=== PATIENT | male | born 1950 | race Two or more races ===

== ENCOUNTER 2020-03-16 15:13 | Inpatient (IN) | payer MEDICARE, MEDICAID ==
[~2020-03-16] VITALS: Ht 170.2 cm; Wt 65.8 kg
[2020-03-16 15:20] VITALS: BP 97/42
--- NOTE | 2020-03-16 15:25 | Emergency Room Report ---
History of Present Illness General Chief Complaint: Generalized Weakness Source: Patient, EMS Present Illness HPI The patient is brought in by EMS. He is transported from a longterm facility with a complaint of weakness. This was noticed by staff. They felt that there was some facial asymmetry however paramedics did not find this. Glucose in the field was 175. The patient denies any pain at this time. He had a history of TIAs in the past. He is unable to state when the weakness began. Paramedics state that he has no fever. There is no cough. The patient was slightly hypotensive in the field with a blood pressure of 97/42 with a heart rate of 69. The patient states he was able to walk yesterday. He denies any cough but is observed coughing. No fevers, chills, sore throat, chest pain, palpitations, nausea, vomiting, diarrhea, dysuria, abdominal pain, shortness of breath, joint pain, rashes, visual changes, dizziness, headache. Note the patient has a history of dementia and history might not be accurate. G tube COPD, pneumonia (01/23/20), NIDDM, HTN Had COVID-19 test yesterday but labs not sent out from SNF until Wednesday (today is Wednesday). 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 COVID-19 Screening: PUI COVID-19 Patient History Past Medical History: see triage record, old chart reviewed Past Surgical History: other - G tube Social History: Denies: smoking Social History Narrative [facility], born [place], retired data security consultant Reviewed Nursing Documentation: PMH: Agreed; PSxH: Agreed Review of Systems All Other Systems: negative except mentioned in HPI - patient with dementia - concern over accuracy Physical Exam Vital Signs Date Time Temp Pulse Resp B/P (MAP) Pulse Ox O2 Delivery O2 Flow Rate FiO2 03/16/20 15:10 97.3 74 16 97/42 (60) 99 Room Air Sp02 EP Interpretation: reviewed, normal General Appearance: alert, Chronically Ill Head: normocephalic, atraumatic Eyes: bilateral eye PERRL, bilateral eye abnormal EOM ENT: moist mucus membranes Neck: full range of motion, supple Respiratory: no respiratory distress, rhonchi Cardiovascular #1: regular rate, rhythm, no edema Cardiovascular #2: 2+ radial (L), 2+ dorsalis pedis (R), 2+ dorsalis pedis (L) Gastrointestinal: non tender, soft, other - G tube Genitourinary: no CVA tenderness Musculoskeletal: normal range of motion - With limb ataxia Neurologic: oriented, facial droop - slight noted by RNs, nystagmus - Slow to right fast to left, no Babinski, other - intention tremor L Psychiatric: mood/affect normal Skin: no rash Procedures Critical Care Time Critical Care Time Total Critical Care Time: 30 min bedside evaluation and treatment excludes procedures (EKG). Reason for critical care: Hypoxia and hypotension and evaluation for possible stroke Possible complications: hypotension, hypertension, ND, shock, arrhythmias, metabolic acidosis, end organ damage, respiratory failure. Interventions: Antibiotics, fluid resuscitation, aspirin, repeat evaluations Course: Patient presented with left-sided weakness. Outside of window for TPA. Chest x-ray with left-sided infiltrate. Antibiotics begun. Patient blood pressure fluctuating. Repeat fluid boluses. CT with old and possible subacute posterior circulation infarct. Aspirin administered. Admitted to telemetry. Consultations: nursing staff, EMS, admitting physician Performed by: Dr. 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 He was unable to walk at 10 AM. This excludes the possibility for TPA administration. Differential includes CVA, cerebellar stroke, TIA, pneumonia, COVID-19 amongst others. Evaluation with EKG, chest x-ray and CT of the head and labs. Patient's blood pressure is minimally low and patient will be treated with IV hydration. Consideration of a possible left cerebellar lesion based on physical exam. Patient is placed on a security monitor. EKG no acute injury. CXR @ 16:00 - L infiltrate and effusion. WBC low but left shift. Elevated CRP. Elevated BUN. Lactic acid normal. Antibiotics ordered for L infiltrate. CT with L posterior circulation infarcts. Possible subacute infarct also. Aspirin ordered. Dr. Mendoza contacted for admission. BP improved. O2 slightly low. Oxygen started. Also BP dropped to 88 again. No distress. NS bolus ordered. 17:25. Improved blood pressure and not tachycardic. Admitted telemetry. Laboratory Tests Test 03/16/20 15:32 03/16/20 17:05 White Blood Count 5.5 K/UL (4.8-10.8) Red Blood Count 5.00 M/UL (4.70-6.10) Hemoglobin 15.3 G/DL (14.2-18.0) Hematocrit 47.5 % (42.0-52.0) Mean Corpuscular Volume 95 FL (80-99) Mean Corpuscular Hemoglobin 30.7 PG (27.0-31.0) Mean Corpuscular Hemoglobin Concent 32.3 G/DL (32.0-36.0) Red Cell Distribution Width 13.3 % (11.6-14.8) Platelet Count 159 K/UL (150-450) Mean Platelet Volume 10.1 FL (6.5-10.1) Neutrophils (%) (Auto) 80.7 % (45.0-75.0) H Lymphocytes (%) (Auto) 9.4 % (20.0-45.0) L Monocytes (%) (Auto) 8.3 % (1.0-10.0) Eosinophils (%) (Auto) 0.4 % (0.0-3.0) Basophils (%) (Auto) 1.3 % (0.0-2.0) Prothrombin Time 10.0 SEC (9.30-11.50) Prothrombin Time INR 0.9 (0.9-1.1) Activated Partial Thromboplast Time 32 SEC (23-33) Sodium Level 136 MMOL/L (136-145) Potassium Level 5.7 MMOL/L (3.5-5.1) H Chloride Level 98 MMOL/L (98-107) Carbon Dioxide Level 31 MMOL/L (21-32) Anion Gap 7 mmol/L (5-15) Blood Urea Nitrogen 19 mg/dL (7-18) H Creatinine 0.9 MG/DL (0.55-1.30) Estimated Glomerular Filtration Rate > 60 mL/min (>60) Glucose Level 151 MG/DL (74-106) H Lactic Acid Level 1.30 mmol/L (0.4-2.0) Calcium Level 9.0 MG/DL (8.5-10.1) Magnesium Level 2.1 MG/DL (1.8-2.4) Total Bilirubin 0.4 MG/DL (0.2-1.0) Aspartate Amino Transferase (AST) 55 U/L (15-37) H Alanine Aminotransferase (ALT) 55 U/L (12-78) Alkaline Phosphatase 66 U/L (46-116) Total Creatine Kinase 216 U/L (26-308) Troponin I 0.001 ng/mL (0.000-0.056) C-Reactive Protein, Quantitative 8.9 mg/dL (0.00-0.90) H Pro-B-Type Natriuretic Peptide 943 pg/mL (0-125) H Total Protein 7.9 G/DL (6.4-8.2) Albumin 3.3 G/DL (3.4-5.0) L Globulin 4.6 g/dL Albumin/Globulin Ratio 0.7 (1.0-2.7) L Urine Color Pale yellow Urine Appearance Clear Urine pH 7 (4.5-8.0) Urine Specific [place] 1.005 (1.005-1.035) Urine Protein 1+ (NEGATIVE) H Urine Glucose (UA) Negative (NEGATIVE) Urine Ketones Negative (NEGATIVE) Urine Blood 2+ (NEGATIVE) H Urine Nitrite Negative (NEGATIVE) Urine Bilirubin Negative (NEGATIVE) Urine Urobilinogen Normal MG/DL (0.0-1.0) Urine Leukocyte Esterase 1+ (NEGATIVE) H Urine RBC 10-15 /HPF (0 - 0) H Urine WBC 15-20 /HPF (0 - 0) H Urine Squamous Epithelial Cells None /LPF (NONE/OCC) Urine Bacteria Few /HPF (NONE) Urine Opiates Screen Negative (NEGATIVE) Urine Barbiturates Screen Negative (NEGATIVE) Phencyclidine (PCP) Screen Negative (NEGATIVE) Urine Amphetamines Screen Negative (NEGATIVE) Urine Benzodiazepines Screen Negative (NEGATIVE) Urine Cocaine Screen Negative (NEGATIVE) Urine Marijuana (THC) Screen Negative (NEGATIVE) EKG Diagnostic Results Rate: normal Rhythm: NSR ST Segments: no acute changes - LAD and old IMI Rhythm Strip Diag. Results EP Interpretation: yes Rhythm: NSR, no PVC's, no ectopy Chest X-Ray Diagnostic Results Chest X-Ray Diagnostic Results : Chest X-Ray Ordered: Yes # of Views/Limited/Complete: 1 View Indication: Other EP Interpretation: Yes Interpretation: no pneumothorax, other - L infiltrate and effusion Impression: Other Electronically Signed by: Electronically signed by Asif Mcbride MD CT/MRI/US Diagnostic Results CT/MRI/US Diagnostic Results : Imaging Test Ordered: head Impression multiple old infarcts - posterior circulation Last Vital Signs Date Time Temp Pulse Resp B/P (MAP) Pulse Ox O2 Delivery O2 Flow Rate FiO2 03/17/20 00:00 98.4 71 20 101/60 (74) 94 03/16/20 21:36 Room Air Status: improved Disposition: ADMITTED INPATIENT Condition: Serious Asif Mcbride MD March 16, 2020 15:25
--- NOTE | 2020-03-16 15:25 | NUR ---
ED Nurse Note: Patient was BIBA from [facility] home due to generalized weakness since today morning, no fever. Patient presented calm, cooperative, AAO x3, BP 96/45, other VSS at this time, skin is warm to touch. IV established on left forearm 20 ga, bloob specimen collected, sent down.
[2020-03-16 15:59] LABS: BASOPHILS % (AUTO) 1.3 % (0.0-2.0); EOSINOPHILS % (AUTO) 0.4 % (0.0-3.0); HEMATOCRIT 47.5 % (42.0-52.0); HEMOGLOBIN 15.3 G/DL (14.2-18.0); LYMPHOCYTES % (AUTO) 9.4 % (20.0-45.0); MEAN CORPUSCULAR VOLUME 95 FL (80-99); MONOCYTES % (AUTO) 8.3 % (1.0-10.0); NEUTROPHILS % (AUTO) 80.7 % (45.0-75.0); PLATELET COUNT 159 K/UL (150-450); RED CELL DISTRIBUTION WIDTH 13.3 % (11.6-14.8); WHITE BLOOD COUNT 5.5 K/UL (4.8-10.8)
[2020-03-16 16:03] LABS: INR 0.9 (0.9-1.1)
[2020-03-16 16:07] LABS: ANION GAP 7 mmol/L (5-15); BLOOD UREA NITROGEN 19 mg/dL (7-18); CARBON DIOXIDE 31 MMOL/L (21-32); CHLORIDE 98 MMOL/L (98-107); CREATININE 0.9 MG/DL (0.55-1.30); POTASSIUM 5.7 MMOL/L (3.5-5.1); SODIUM 136 MMOL/L (136-145)
[2020-03-16] MEDS ORDERED: Azithromycin 500 MG in D5W 275 ML IVPB ONE (16:15)
[2020-03-16] MEDS ORDERED: cefTRIAXone 1 GM in NS 55 ML IVPB ONE (16:15)
[2020-03-16 16:19] LABS: ALANINE AMINOTRANSFERASE 55 U/L (12-78); ALBUMIN 3.3 G/DL (3.4-5.0); ALBUMIN/GLOBULIN RATIO 0.7 (1.0-2.7); ALKALINE PHOSPHATASE 66 U/L (46-116); ASPARTATE AMINO TRANSFERASE 55 U/L (15-37); BILIRUBIN,TOTAL 0.4 MG/DL (0.2-1.0); CREATINE KINASE 216 U/L (26-308)
[2020-03-16] MEDS ORDERED: Aspirin Baby 81mg GT STA (16:20)
--- NOTE | 2020-03-16 16:30 | Diagnostic Imaging Report ---
EXAM: XR Chest, 1 View CLINICAL HISTORY: WEAK TECHNIQUE: Frontal view of the chest. COMPARISON: None FINDINGS: Hardware: None. Lungs/pleura: Elevation of the left hemidiaphragm. Left lower lung opacity may represent atelectasis versus pneumonia. Right basilar opacity likely represents atelectasis. Prominent lung markings may represent pulmonary vasculature congestion versus infectious/inflammatory process. No pleural effusion or pneumothorax. Heart/mediastinum: Normal. No cardiomegaly. Soft tissues: Unremarkable. Bones: No acute fracture. Upper abdomen: Normal. IMPRESSION: Left lower lung opacity may represent atelectasis versus pneumonia. Right basilar opacity likely represents atelectasis. Prominent lung markings may represent pulmonary vasculature congestion versus infectious/inflammatory process.
--- NOTE | 2020-03-16 16:34 | Diagnostic Imaging Report ---
EXAM: CT Head Without Intravenous Contrast CLINICAL HISTORY: WEAK TECHNIQUE: Axial computed tomography images of the head/brain without intravenous contrast. CTDI is 53.4 mGy and DLP is 1125.7 mGy-cm. One or more of the following dose reduction techniques were used: automated exposure control, adjustment of the mA and/or kV according to patient size, use of iterative reconstruction technique. COMPARISON: None FINDINGS: Brain: No acute infarct or hemorrhage identified. No extra-axial fluid collection. No mass effect or midline shift. Scattered areas of hypoattenuation in the supratentorial white matter likely represent chronic small vessel ischemic changes. Encephalomalacia in the medial left occipital lobe. Prominent encephalomalacia in the cerebellar hemispheres. Ventricles and sulci: Prominence of the ventricles and sulci is likely secondary to cerebral volume loss. Bones: Normal. No bony lesion or fracture. Subcutaneous tissues: Normal. Sinuses: Mucosal thickening in left greater than right maxillary sinuses and ethmoid air cells. Small osteoma in the posterior left ethmoid air cells. Mastoid air cells: Fluid in the mastoid air cells. Orbits: Grossly unremarkable. Other: Atherosclerotic calcifications in the intracranial vasculature. IMPRESSION: 1. No acute intracranial abnormality. 2. Chronic small vessel ischemic changes and cerebral volume loss. Encephalomalacia as described above.
--- NOTE | 2020-03-16 17:05 | NUR ---
ED Nurse Note: urine specimen collected via straight cath, sent down
[2020-03-16 17:15] VITALS: BP 87/43
[2020-03-16 17:26] LABS: APPEARANCE,URINE CLEAR; BILIRUBIN, URINE NEGATIVE (NEGATIVE); COLOR,URINE PALE YELLOW; GLUCOSE, URINE (UA) NEGATIVE (NEGATIVE); KETONES,URINE NEGATIVE (NEGATIVE); NITRITE,URINE NEGATIVE (NEGATIVE); PH,URINE 7 (4.5-8.0); PROTEIN,URINE 1+ (NEGATIVE); UROBILINOGEN,URINE NORMAL MG/DL (0.0-1.0)
[2020-03-16 17:29] LABS: LEUKOCYTE ESTERASE ,URINE 1+ (NEGATIVE)
[2020-03-16] MEDS ORDERED: FISH OIL CAP1000 MG GT (18:32)
[2020-03-16] MEDS ORDERED: LISINOPRIL5 MG GT (18:32)
[2020-03-16] MEDS ORDERED: NAMENDA5 MG GT (18:32)
[2020-03-16] MEDS ORDERED: MOM30 ML GT (18:32)
[2020-03-16] MEDS ORDERED: FLEET ENEMA133 M1 RC (18:32)
[2020-03-16] MEDS ORDERED: BENAZEPRIL HCL5 MG GT (18:32)
[2020-03-16] MEDS ORDERED: ACETAMINOPHEN325 M1 GT (18:32)
[2020-03-16] MEDS ORDERED: COLACE100 MG GT (18:32)
[2020-03-16] MEDS ORDERED: METFORMIN500 MG/5 M PO (18:32)
[2020-03-16] MEDS ORDERED: ACETAMINOPHEN500 M3 GT (18:32)
[2020-03-16] MEDS ORDERED: MULTIVITAMINS1 EAC8 GT (18:32)
[2020-03-16] MEDS ORDERED: DULCOLAX10 MG RC (18:32)
[2020-03-16] MEDS ORDERED: METOPROLOL TART25 MG GT (18:32)
[2020-03-16] MEDS ORDERED: PRAVASTATIN SOD40 M1 GT (18:32)
--- NOTE | 2020-03-16 18:35 | NUR ---
ED Nurse Note: called to give report, ONEYDA Moise stated there is no nurse for this patient, will call me back later
--- NOTE | 2020-03-16 19:05 | NUR ---
ED Nurse Note: called second time, devulcanizer charger stated there is change of shift, call please after 19:30
[2020-03-16 20:00] VITALS: BP 95/64
--- NOTE | 2020-03-16 20:00 | NUR ---
ED Nurse Note: Patient was admited to Tele due to generalized weakness. Patient was transfered to the unit via gurney by ACLS protocol, with all belongings. Patient AAO x3, VSS at this time, pt's BP 88/56 which is baseline for hin when he is sleeping.
--- NOTE | 2020-03-16 20:10 | NUR ---
NURSE NOTES: RECEIVED REPORT FROM ONEYDA MORELAND. PATIENT TRANSFERRED TO BED WITHOUT INCIDENT. AAOX3, VERBALLY RESPONSIVE, ABLE TO MAKE NEEDS KNOWN AND FOLLOW COMMANDS APPROPRIATELY. PATIENT HAS NO COMPLAINTS OF PAIN OR DISCOMFORT AT THIS TIME. BREATHING IS EVEN AND UNLABORED ON ROOM AIR, NO S/SX OF DISTRESS NOTED. NOTED TO HAVE LUQ G-TUBE, PATENT WITH NO S/SX OF INFECTION. IV SITE ON RFA ASYMPTOMATIC, PATENT AND INTACT, SALINE-LOCKED. PATIENT CHANGED INTO YELLOW GOWN, AND FIRST AID TEACHER PLACED. NO DENTURES/HEARING AIDS/ASSISTIVE DEVICES/GLASSES/CELL PHONE IN POSSESSION. CONTACT AND DROPLET PRECAUTIONS IMPLEMENTED. BED LOCKED AND IN LOWEST POSITION WITH SIDERAILS UP X 2. CALL LIGHT WITHIN REACH. WILL CONTINUE TO MONITOR.
--- NOTE | 2020-03-16 21:15 | NUR ---
NURSE NOTES: CONTACTED DR. VENTURA FOR ADMISSION ORDERS. AWAITING CALL BACK.
--- NOTE | 2020-03-16 21:20 | NUR ---
NURSE NOTES: PER DR. VENTURA, CALL DR. CHUNG FOR ADMISSION ORDERS. LEFT DR. CHUNG VOICEMAIL AT [phone]. AWAITING CALL BACK.
[2020-03-17] VITALS (7 sets, daily range): BP systolic 101–114; BP diastolic 53–62
[2020-03-17] MEDS: NovoLOG Insulin Flexpen SUBQ SCH ×4 (06:30→21:00)
--- NOTE | 2020-03-17 07:23 | NUR ---
HAND-OFF: Report given to ONEYDA BRICE. PATIENT IN STABLE CONDITION. PLAN OF CARE ENDORSED.
--- NOTE | 2020-03-17 08:00 | NUR ---
NURSE NOTES: Report received from Rossy CALL. Patient is observed in bed, awake, alert, oriented, and able to make needs known. Respiratory even and unlabored. GTF is running at a prescribed rate. Bed is in lowest position with side rails up x2 and brakes are engaged. Bed alarm is on. Encouraged pt to use call light when in need of assistance, pt verbalized understanding.
[2020-03-17] MEDS ORDERED: Memantine 10mg tab GT SCH (09:00)
[2020-03-17] MEDS ORDERED: Memantine 10mg tab ORAL SCH (09:00)
[2020-03-17 09:02] LABS: ANION GAP 5 mmol/L (5-15); BASOPHILS % (AUTO) 0.9 % (0.0-2.0); BLOOD UREA NITROGEN 13 mg/dL (7-18); CARBON DIOXIDE 30 MMOL/L (21-32); CHLORIDE 104 MMOL/L (98-107); CREATININE 0.6 MG/DL (0.55-1.30); EOSINOPHILS % (AUTO) 0.9 % (0.0-3.0); HEMATOCRIT 40.5 % (42.0-52.0); HEMOGLOBIN 13.6 G/DL (14.2-18.0); LYMPHOCYTES % (AUTO) 8.4 % (20.0-45.0); MEAN CORPUSCULAR VOLUME 90 FL (80-99); MONOCYTES % (AUTO) 8.9 % (1.0-10.0); NEUTROPHILS % (AUTO) 80.9 % (45.0-75.0); PLATELET COUNT 133 K/UL (150-450); POTASSIUM 4.8 MMOL/L (3.5-5.1); RED BLOOD COUNT 4.49 M/UL (4.70-6.10); RED CELL DISTRIBUTION WIDTH 12.1 % (11.6-14.8); SODIUM 139 MMOL/L (136-145); WHITE BLOOD COUNT 5.9 K/UL (4.8-10.8)
[2020-03-17] MEDS: Milk of Magnesia 30ml Ud GT SCH (09:56)
[2020-03-17] MEDS: Docusate 100mg/10ml Liq GT SCH (09:56)
[2020-03-17] MEDS: metFORMIN 500mg tab ORAL SCH ×2 (09:57→17:25)
[2020-03-17] MEDS: Memantine 5 MG TAB GT SCH ×2 (09:57→17:25)
[2020-03-17] MEDS: cefTRIAXone 1 GM in D5W 55 ML IVPB SCH (09:57)
--- NOTE | 2020-03-17 11:44 | Consultation ---
DATE OF CONSULTATION: 03/17/2020 PULMONARY CONSULTATION CONSULTING PHYSICIAN: German Islas MD HISTORY OF PRESENT ILLNESS: This is a 69-year-old male brought in from a nursing facility. He reports generalized weakness. There was also some facial asymmetry. He was not hypoglycemic. The patient has had TIA in the past. The patient was mildly hypotensive, but was normotensive on arrival to the emergency room. The patient has a mild cough. There is no fever, chills, sore throat. No diarrhea. He has a G-tube in place. He has a history of dementia. PAST MEDICAL HISTORY: G-tube, COPD, previous pneumonia, diabetes mellitus, hypertension. ALLERGIES: None reported. SOCIAL HISTORY: He is a intermediate resident. MEDICATIONS: Reviewed and reconciled in chart. PHYSICAL EXAMINATION: VITAL SIGNS: Blood pressure is 140/50, heart rate 74, respiratory rate , afebrile, T-max 99.1. GENERAL: Reveals a 69-year-old male. HEENT: Unremarkable. CHEST: Clear breath sounds bilaterally with normal heart sounds. ABDOMEN: Soft. EXTREMITIES: There is no edema. G-tube is in place. LABORATORY DATA: Lab testing shows normal CBC and BMP with the exception of potassium 5.7. DIAGNOSTIC STUDIES: X-ray chest was obtained, which shows atelectasis versus pneumonia, left lung field. Head CT was also obtained, which was negative for any acute pathology. IMPRESSION: 1. Probable pneumonia. 2. custodial resident. 3. Rule out COVID-19. 4. Hypertension. 5. Previous TIA. 6. Diabetes mellitus. 7. Chronic G-tube. 8. Dementia. DISCUSSION: Admit to the hospital. Continue medications. We will follow as foot setter. Currently, the patient has received antibiotics. He is on insulin sliding scale, medication. We will follow carefully. German Islas M.D. DR: NATALIA JOB#: [id number] CC:
--- NOTE | 2020-03-17 12:00 | NUR ---
NURSE NOTES: Patient is observed in bed, awake, alert, oriented, and able to make needs known. HOB elevated. GTF running at a prescribed rate. Denies pain at this time. Will continue to monitor.
--- NOTE | 2020-03-17 13:04 | Infectious Diseases Prog Note ---
Assessment/Plan Assessment/Plan ID consult was Dictated Subjective Allergies: Coded Allergies: No Known Allergies (Unverified , 03/16/20) Objective Vital Signs Last 24 Hour Vital Signs Date Time Temp Pulse Resp B/P (MAP) Pulse Ox O2 Delivery O2 Flow Rate FiO2 03/17/20 09:58 71 108/62 03/17/20 09:00 Room Air 03/17/20 08:00 98.9 71 20 108/62 (77) 95 03/17/20 04:00 82 03/17/20 04:00 99.1 76 20 114/54 (74) 95 03/17/20 00:00 98.4 71 20 101/60 (74) 94 03/17/20 00:00 70 03/16/20 21:36 Room Air 03/16/20 20:00 97.9 87 20 88/56 95 Room Air 03/16/20 20:00 96.8 63 24 95/64 (74) 94 03/16/20 17:15 97.3 78 16 87/43 96 Room Air 03/16/20 15:20 97.3 74 16 97/42 96 Room Air 03/16/20 15:20 74 16 Room Air 03/16/20 15:10 97.3 74 16 97/42 (60) 99 Room Air Height (Feet): 5 Height (Inches): 7.00 Weight (Pounds): 146 Microbiology Date/Time Source Procedure Growth Status 03/16/20 17:05 Urine,Clean Catch Urine Culture - Preliminary NO GROWTH Resulted 03/16/20 15:32 Rectum Received Laboratory Tests Test 03/16/20 15:32 03/16/20 17:05 03/17/20 07:50 White Blood Count 5.5 K/UL (4.8-10.8) 5.9 K/UL (4.8-10.8) Red Blood Count 5.00 M/UL (4.70-6.10) 4.49 M/UL (4.70-6.10) L Hemoglobin 15.3 G/DL (14.2-18.0) 13.6 G/DL (14.2-18.0) L Hematocrit 47.5 % (42.0-52.0) 40.5 % (42.0-52.0) L Mean Corpuscular Volume 95 FL (80-99) 90 FL (80-99) Mean Corpuscular Hemoglobin 30.7 PG (27.0-31.0) 30.2 PG (27.0-31.0) Mean Corpuscular Hemoglobin Concent 32.3 G/DL (32.0-36.0) 33.5 G/DL (32.0-36.0) Red Cell Distribution Width 13.3 % (11.6-14.8) 12.1 % (11.6-14.8) Platelet Count 159 K/UL (150-450) 133 K/UL (150-450) L Mean Platelet Volume 10.1 FL (6.5-10.1) 8.9 FL (6.5-10.1) Neutrophils (%) (Auto) 80.7 % (45.0-75.0) H 80.9 % (45.0-75.0) H Lymphocytes (%) (Auto) 9.4 % (20.0-45.0) L 8.4 % (20.0-45.0) L Monocytes (%) (Auto) 8.3 % (1.0-10.0) 8.9 % (1.0-10.0) Eosinophils (%) (Auto) 0.4 % (0.0-3.0) 0.9 % (0.0-3.0) Basophils (%) (Auto) 1.3 % (0.0-2.0) 0.9 % (0.0-2.0) Prothrombin Time 10.0 SEC (9.30-11.50) Prothromb Time International Ratio 0.9 (0.9-1.1) Activated Partial Thromboplast Time 32 SEC (23-33) Sodium Level 136 MMOL/L (136-145) 139 MMOL/L (136-145) Potassium Level 5.7 MMOL/L (3.5-5.1) H 4.8 MMOL/L (3.5-5.1) Chloride Level 98 MMOL/L (98-107) 104 MMOL/L (98-107) Carbon Dioxide Level 31 MMOL/L (21-32) 30 MMOL/L (21-32) Anion Gap 7 mmol/L (5-15) 5 mmol/L (5-15) Blood Urea Nitrogen 19 mg/dL (7-18) H 13 mg/dL (7-18) Creatinine 0.9 MG/DL (0.55-1.30) 0.6 MG/DL (0.55-1.30) Estimat Glomerular Filtration Rate > 60 mL/min (>60) > 60 mL/min (>60) Glucose Level 151 MG/DL (74-106) H 181 MG/DL (74-106) H Lactic Acid Level 1.30 mmol/L (0.4-2.0) Calcium Level 9.0 MG/DL (8.5-10.1) 8.0 MG/DL (8.5-10.1) L Magnesium Level 2.1 MG/DL (1.8-2.4) Total Bilirubin 0.4 MG/DL (0.2-1.0) Aspartate Amino Transf (AST/SGOT) 55 U/L (15-37) H Alanine Aminotransferase (ALT/SGPT) 55 U/L (12-78) Alkaline Phosphatase 66 U/L (46-116) Total Creatine Kinase 216 U/L (26-308) Troponin I 0.001 ng/mL (0.000-0.056) C-Reactive Protein, Quantitative 8.9 mg/dL (0.00-0.90) H Pro-B-Type Natriuretic Peptide 943 pg/mL (0-125) H Total Protein 7.9 G/DL (6.4-8.2) Albumin 3.3 G/DL (3.4-5.0) L Globulin 4.6 g/dL Albumin/Globulin Ratio 0.7 (1.0-2.7) L Urine Color Pale yellow Urine Appearance Clear Urine pH 7 (4.5-8.0) Urine Specific [place] 1.005 (1.005-1.035) Urine Protein 1+ (NEGATIVE) H Urine Glucose (UA) Negative (NEGATIVE) Urine Ketones Negative (NEGATIVE) Urine Blood 2+ (NEGATIVE) H Urine Nitrite Negative (NEGATIVE) Urine Bilirubin Negative (NEGATIVE) Urine Urobilinogen Normal MG/DL (0.0-1.0) Urine Leukocyte Esterase 1+ (NEGATIVE) H Urine RBC 10-15 /HPF (0 - 0) H Urine WBC 15-20 /HPF (0 - 0) H Urine Squamous Epithelial Cells None /LPF (NONE/OCC) Urine Bacteria Few /HPF (NONE) Urine Opiates Screen Negative (NEGATIVE) Urine Barbiturates Screen Negative (NEGATIVE) Phencyclidine (PCP) Screen Negative (NEGATIVE) Urine Amphetamines Screen Negative (NEGATIVE) Urine Benzodiazepines Screen Negative (NEGATIVE) Urine Cocaine Screen Negative (NEGATIVE) Urine Marijuana (THC) Screen Negative (NEGATIVE) Current Medications Medications (Trade) Dose Ordered Sig/Emma Route PRN Reason Start Time Stop Time Status Last Admin Dose Admin Acetaminophen (Tylenol) 650 mg Q4H PRN GT Temp >100.5 03/16/20 21:45 04/15/20 21:44 Ceftriaxone Sodium 1 gm/ Dextrose 55 ml @ 110 mls/hr DAILY IVPB 03/17/20 09:00 03/24/20 08:59 03/17/20 09:57 Dextrose (Dextrose 50%) 25 ml Q30M PRN IV Hypoglycemia 03/16/20 21:45 06/14/20 21:44 Dextrose (Dextrose 50%) 50 ml Q30M PRN IV Hypoglycemia 03/16/20 21:45 06/14/20 21:44 Docusate Sodium (Colace) 250 mg DAILY GT 03/17/20 09:00 04/16/20 08:59 03/17/20 09:56 Insulin Aspart (NovoLOG) BEFORE MEALS AND HS SUBQ 03/17/20 06:30 06/15/20 06:29 Magnesium Hydroxide (Mom) 30 ml DAILY GT 03/17/20 09:00 04/16/20 08:59 03/17/20 09:56 Memantine (Namenda) 5 mg BID GT 03/17/20 09:00 04/16/20 08:59 03/17/20 09:57 Metformin HCl (Glucophage) 500 mg BID ORAL 03/17/20 09:00 04/16/20 08:59 03/17/20 09:57 Metoprolol Tartrate (Lopressor) 25 mg EVERY 12 HOURS GT 03/17/20 09:00 06/15/20 08:59 03/17/20 09:58 Pravastatin Sodium (Pravachol) 40 mg BEDTIME GT 03/17/20 21:00 04/16/20 20:59 Ramirez Bunn MD March 17, 2020 13:04
--- NOTE | 2020-03-17 17:15 | History and Physical Report ---
DATE OF ADMISSION: 03/16/2020 DATE AND TIME SEEN: 03/17/2020, approximate time is 9 a.m. CONSULTANTS: 1. German Islas MD. 2. Gilberto Rodrigues MD. 3. Kesha Lewis MD. CHIEF COMPLAINT: Possible CVA, pneumonia, sepsis, shortness of breath. BRIEF HISTORY: This is a 69-year-old male from [facility], presented with increased weakness, lethargy, possible CVA sent to [facility], diagnosed with the above, also pneumonia, sepsis, shortness of breath, admitted to telemetry for further care. Currently, calm, sleeping in bed, not talking much. REVIEW OF SYSTEMS: Unavailable. PAST MEDICAL HISTORY: Hypertension, diabetes, COPD and dementia. PAST SURGICAL HISTORY: Unknown. MEDICATIONS: Include Pravachol, ceftriaxone, magnesium, memantine, metoprolol, metformin, insulin, IV fluid, ceftriaxone, azithromycin. ALLERGIES: Denies. SOCIAL HISTORY: No smoking. No alcohol. No intravenous drug abuse. FAMILY HISTORY: Noncontributory. PHYSICAL EXAMINATION: VITAL SIGNS: Temperature is 99, pulse 82, respirations 20, blood pressure 114/54. GENERAL: Lethargic in bed, not really responding to questions. HEENT: Normocephalic, atraumatic. NECK: Trachea midline. CARDIOVASCULAR: No peripheral edema. PULMONARY: Breathing comfortably on room air. ABDOMEN: No apparent wounds. EXTREMITIES: No cyanosis or clubbing. LABORATORY AND DIAGNOSTIC DATA: Labs at this time show hemoglobin and hematocrit 13/40, otherwise platelets 133. BMP shows glucose 181, otherwise normal. Troponin 0.001. Albumin 3.3. Urinalysis shows 2+ blood, 1+ leukocyte esterase. INR is 0.9. Urine tox screen is negative. ASSESSMENT: 1. CVA. 2. UTI. 3. Pneumonia. 4. Sepsis. 5. Shortness of breath. 6. Malnutrition. 7. Hypertension. 8. Diabetes. 9. COPD. 10. Dementia. PLAN: 1. PT/OT, dietary follow up. 2. Blood pressure, blood sugar, pain control. 3. Antibiotics per Infectious Disease. 4. Resume home medications. 5. CBC, BMP in the morning. Wagner Mendoza D.O. DR: TATIANNA JOB#: [id number] CC:
--- NOTE | 2020-03-17 17:44 | Consultation ---
DATE OF CONSULTATION: 03/17/2020 INFECTIOUS DISEASES CONSULTATION This consult is for coverage of Dr. Lewis. CONSULTING PHYSICIAN: Ramirez Bunn MD PRIMARY ATTENDING PHYSICIAN: Wagner Mendoza DO. REASON FOR CONSULTATION: Pneumonia. HISTORY OF PRESENT ILLNESS: The patient is a 69-year-old male admitted from assisted yesterday because of weakness. The patient had facial asymmetry in assisted, but it was not noticed by paramedics, found to have abnormal chest x-ray likely with pneumonia, also had pyuria. PAST MEDICAL HISTORY: Diabetes mellitus, hypertension, history of CVA. ALLERGIES: No known drug allergies. MEDICATIONS: Pravastatin, ceftriaxone, milk of magnesium, metoprolol, Colace, metformin, memantine, insulin, get a dose of Zithromax in the ER. SOCIAL HISTORY: Single, assisted resident. He has history of alcohol abuse in the past. No history of smoking. REVIEW OF SYSTEMS: No fever, dry cough. No nausea. No vomiting. Weakness in leg. PHYSICAL EXAMINATION: VITAL SIGNS: no fever in hospital, pulse 71, blood pressure 108/62. GENERAL APPEARANCE: No acute distress. HEAD AND NECK: [place] conjunctiva. HEART: Normal rate. LUNGS: Clear. ABDOMEN: Soft. EXTREMITIES: No edema. NEUROLOGIC: Awake, alert, has weakness in lower extremities with muscle atrophy, weakness is more than in the left leg. LABORATORY AND DIAGNOSTIC DATA: WBC 5.9, hemoglobin 13.6, hematocrit 40.5, and platelets 133, lymphocytes is 98.4. Sodium 139, potassium 4.8, chloride 104, bicarb 30, BUN 13, creatinine 0.6, glucose 181. Lactic acid 1.3. CT scan of the head showed encephalomalacia in the occipital lobe and cerebral hemisphere. Chest x-ray showed left lower lung opacity, atelectasis versus pneumonia, right lower lung opacity likely atelectasis, congestive changes. IMPRESSION: Pneumonia. We will try to rule out COVID-19. The patient also has lymphocytopenia, diabetes mellitus, hypertension, dementia, encephalomalacia secondary to previous stroke. RECOMMENDATION: Continue with ceftriaxone. We will follow up the culture. We will follow up the COVID-19 tests. Repeat chest x-ray in few days. At the end of my exam, I thank Dr. Wagner Mendoza, for involving me in the care of this patient. Ramirez Bunn M.D. DR: Santiago JOB#: [id number] CC: RUBA
--- NOTE | 2020-03-17 19:14 | NUR ---
HAND-OFF: Report given to Rossy CALL. Endorsed plan of care.
--- NOTE | 2020-03-17 19:36 | NUR ---
NURSE NOTES: RECEIVED REPORT FROM ONEYDA BRICE. PATIENT AAOX3, VERBALLY RESPONSIVE ALTHOUGH SLOW TO RESPOND, AND ABLE TO MAKE NEEDS KNOWN. BREATHING IS EVEN AND UNLABORED ON ROOM AIR, NO S/SX OF DISTRESS. NO COMPLAINTS OF PAIN OR DISCOMFORT AT THIS TIME. GTF RUNNING AT PRESCRIBED RATE WITH NO RESIDUAL; G-TUBE PATENT, NO S/SX OF INFECTION NOTED. IV SITE ON RFA ASYMPTOMATIC, PATENT AND INTACT, SALINE-LOCKED. CONTACT AND DROPLET PRECAUTIONS IMPLEMENTED. BED LOCKED AND IN LOWEST POSITION WITH SIDERAILS UP X 3. CALL LIGHT WITHIN REACH, WILL CONTINUE TO MONITOR.
--- NOTE | 2020-03-17 20:30 | NUR ---
NURSE NOTES: PATIENT'S OXYGEN SATURATION NOTED TO BE 89% ON ROOM AIR WITH NO S/SX OF DISTRESS- PATIENT DENIED FEELING SHORT OF BREATH. PATIENT'S HOB ELEVATED, ENCOURAGED TO PERFORM DEEP BREATHING EXERCISES, BUT OXYGEN SATURATION REMAINED AT 89%. PATIENT WAS PLACED ON 2L VIA NASAL CANNULA, DR. VENTURA INFORMED WITH NEW ORDER FOR OXYGEN THERAPY VIA NASAL CANNULA TITRATE TO KEEP O2 SATURATION ABOVE 94%.
[2020-03-17] MEDS: Acetaminophen 650mg/20.3ml GT PRN (21:02)
--- NOTE | 2020-03-17 21:38 | NUR ---
NURSE NOTES: BS AT BEDTIME IS 160, BUT PATIENT REFUSES TO TAKE INSULIN. PATIENT IS ALERT, ORIENTED X3 AND ABLE TO MAKE OWN DECISIONS FOR HIMSELF. PER PATIENT HE DOES NOT TAKE INSULIN AT HIS FACILITY AND HE FEARS HE WILL HAVE TO CONTINUE TAKING INSULIN FOR A LIFETIME. EDUCATED PATIENT ON THE PURPOSE OF INSULIN WHILE HOSPITALIZED AND ASSURED HIM TAKING INSULIN WHILE IN THE HOSPITAL DOES NOT MEAN HE WILL CONTINUE TAKING IT AT HOME. PATIENT STILL REFUSED INSULIN ADMINISTRATION.
[2020-03-18] VITALS: BP 104/52
[2020-03-18 04:00] VITALS: BP 131/67
[2020-03-18 06:21] LABS: ANION GAP 6 mmol/L (5-15); BLOOD UREA NITROGEN 15 mg/dL (7-18); CALCIUM 8.3 MG/DL (8.5-10.1); CARBON DIOXIDE 29 MMOL/L (21-32); CHLORIDE 102 MMOL/L (98-107); CREATININE 0.7 MG/DL (0.55-1.30); SODIUM 137 MMOL/L (136-145)
[2020-03-18] MEDS: NovoLOG Insulin Flexpen SUBQ SCH ×4 (06:30→21:00)
--- NOTE | 2020-03-18 06:46 | NUR ---
NURSE NOTES: BS IN AM 183, BUT PATIENT REFUSING INSULIN AGAIN DESPITE BEING EDUCATED ON IMPORTANCE.
[2020-03-18 06:57] LABS: HEMATOCRIT 38.8 % (42.0-52.0); HEMOGLOBIN 13.5 G/DL (14.2-18.0); LYMPHOCYTES % (AUTO) 10.5 % (20.0-45.0); MEAN CORPUSCULAR VOLUME 89 FL (80-99); MONOCYTES % (AUTO) 8.3 % (1.0-10.0); NEUTROPHILS % (AUTO) 79.2 % (45.0-75.0); PLATELET COUNT 152 K/UL (150-450); RED BLOOD COUNT 4.35 M/UL (4.70-6.10); RED CELL DISTRIBUTION WIDTH 12.1 % (11.6-14.8); WHITE BLOOD COUNT 6.1 K/UL (4.8-10.8)
--- NOTE | 2020-03-18 07:41 | NUR ---
HAND-OFF: Report given to ONEYDA FLORES. PATIENT IN STABLE CONDITION. PLAN OF CARE ENDORSED.
--- NOTE | 2020-03-18 07:45 | NUR ---
NURSE NOTES: Received report from Rossy/RN, Patient is awake A/O x3, lying semi-cotton's, resting comfortably. On 2L nasal canula, no acute distress/SOB noted. Denies pain at this time. IV on right Hand 22G, patent, no bleeding or infiltration noted. G-Tube site patent and intact. Bed in low position and locked. Call light within reach. Encouraged to use call light when needed. Will continue plan of care.
[2020-03-18 08:00] VITALS: BP 107/58
--- NOTE | 2020-03-18 09:15 | NUR ---
NURSE NOTES: Patient is positive for MRSA nares, Dr. Winter aware.
--- NOTE | 2020-03-18 09:35 | Pulmonology Progress Note ---
Subjective Interval Events: None new Constitutional: Reports: no symptoms HEENT: Repors: no symptoms Respiratory: Reports: no symptoms Cardiovascular: Reports: no symptoms Gastrointestinal/Abdominal: Reports: no symptoms Allergies: Coded Allergies: No Known Allergies (Unverified , 03/16/20) Objective Last 24 Hour Vital Signs Date Time Temp Pulse Resp B/P (MAP) Pulse Ox O2 Delivery O2 Flow Rate FiO2 03/18/20 04:00 97.7 73 21 131/67 (88) 94 03/18/20 04:00 74 03/18/20 00:00 72 03/18/20 00:00 97.7 78 19 104/52 (69) 94 03/17/20 21:37 99.0 03/17/20 21:03 96 111/53 03/17/20 21:00 Room Air 03/17/20 20:00 101.8 96 20 111/53 (72) 89 03/17/20 20:00 96 03/17/20 18:15 98.0 81 20 110/61 (77) 96 03/17/20 15:49 84 03/17/20 12:00 98.9 73 20 112/60 (77) 95 03/17/20 11:21 71 03/17/20 09:58 71 108/62 Intake and Output 03/17/20 03/18/20 19:00 07:00 Intake Total 70 ml 770 ml Balance 70 ml 770 ml Intake Tube Feeding 70 ml 770 ml # Voids 3 5 General Appearance: no acute distress HEENT: normocephalic Respiratory: chest wall non-tender, lungs clear Cardiovascular: normal peripheral pulses Abdomen: normal bowel sounds Microbiology Date/Time Source Procedure Growth Status 03/16/20 15:32 Blood Blood Culture - Preliminary NO GROWTH AFTER 24 HOURS Resulted 03/16/20 15:05 Blood Blood Culture - Preliminary NO GROWTH AFTER 24 HOURS Resulted 03/16/20 15:32 Nasal Nares MRSA Culture - Final Staphylococcus Aureus - Mrsa Complete 03/16/20 17:05 Urine,Clean Catch Urine Culture - Preliminary NO GROWTH AFTER 24 HOURS Resulted 03/16/20 15:32 Rectum Received Laboratory Tests 03/18/20 04:00: Sodium Level 137, Potassium Level 5.0, Chloride Level 102, Carbon Dioxide Level 29, Anion Gap 6, Blood Urea Nitrogen 15, Creatinine 0.7, Estimat Glomerular Filtration Rate > 60, Glucose Level 135H, Calcium Level 8.3L 03/18/20 06:15: White Blood Count 6.1, Red Blood Count 4.35L, Hemoglobin 13.5L, Hematocrit 38.8L , Mean Corpuscular Volume 89, Mean Corpuscular Hemoglobin 31.0, Mean Corpuscular Hemoglobin Concent 34.7, Red Cell Distribution Width 12.1, Platelet Count 152, Mean Platelet Volume 8.0, Neutrophils (%) (Auto) 79.2H, Lymphocytes ( %) (Auto) 10.5L, Monocytes (%) (Auto) 8.3, Eosinophils (%) (Auto) 1.0, Basophils (%) (Auto) 1.0 Current Medications Medications (Trade) Dose Ordered Sig/Emma Route PRN Reason Start Time Stop Time Status Last Admin Dose Admin Acetaminophen (Tylenol) 650 mg Q4H PRN GT Temp >100.5 03/16/20 21:45 04/15/20 21:44 03/17/20 21:02 Ceftriaxone Sodium 1 gm/ Dextrose 55 ml @ 110 mls/hr DAILY IVPB 03/17/20 09:00 03/24/20 08:59 03/17/20 09:57 Dextrose (Dextrose 50%) 25 ml Q30M PRN IV Hypoglycemia 03/16/20 21:45 06/14/20 21:44 Dextrose (Dextrose 50%) 50 ml Q30M PRN IV Hypoglycemia 03/16/20 21:45 06/14/20 21:44 Docusate Sodium (Colace) 250 mg DAILY GT 03/17/20 09:00 04/16/20 08:59 03/17/20 09:56 Insulin Aspart (NovoLOG) BEFORE MEALS AND HS SUBQ 03/17/20 06:30 06/15/20 06:29 Magnesium Hydroxide (Mom) 30 ml DAILY GT 03/17/20 09:00 04/16/20 08:59 03/17/20 09:56 Memantine (Namenda) 5 mg BID GT 03/17/20 09:00 04/16/20 08:59 03/17/20 17:25 Metformin HCl (Glucophage) 500 mg BID ORAL 03/17/20 09:00 04/16/20 08:59 03/17/20 17:25 Metoprolol Tartrate (Lopressor) 25 mg EVERY 12 HOURS GT 03/17/20 09:00 06/15/20 08:59 03/17/20 21:03 Pravastatin Sodium (Pravachol) 40 mg BEDTIME GT 03/17/20 21:00 04/16/20 20:59 03/17/20 21:03 Assessment/Plan Assessment/Plan IMPRESSION: 1. Probable pneumonia. 2. long term resident. 3. Rule out COVID-19. 4. Hypertension. 5. Previous TIA. 6. Diabetes mellitus. 7. Chronic G-tube. 8. Dementia. DISCUSSION: Continue medications. I will follow as operations inspector. Currently, the patient has received antibiotics. He is on insulin sliding scale insulin. Await COVID 19 pcr German Islas M.D. German Islas MD March 18, 2020 09:35
[2020-03-18] MEDS: Milk of Magnesia 30ml Ud GT SCH (09:48)
[2020-03-18] MEDS: cefTRIAXone 1 GM in D5W 55 ML IVPB SCH (09:48)
[2020-03-18] MEDS: Memantine 5 MG TAB GT SCH ×2 (09:49→18:03)
[2020-03-18] MEDS: Docusate 100mg/10ml Liq GT SCH (09:49)
[2020-03-18] MEDS: metFORMIN 500mg tab ORAL SCH ×2 (09:50→18:03)
--- NOTE | 2020-03-18 10:09 | General Progress Note ---
Assessment/Plan Problem List: (1) CVA (cerebral vascular accident) ICD Codes: I63.9 - Cerebral infarction, unspecified SNOMED: 518521695 (2) UTI (urinary tract infection) ICD Codes: N39.0 - Urinary tract infection, site not specified SNOMED: 48697138 (3) Pneumonia ICD Codes: J18.9 - Pneumonia, unspecified organism SNOMED: 844452934 (4) HTN (hypertension) ICD Codes: I10 - Essential (primary) hypertension SNOMED: 66200596 (5) Diabetes ICD Codes: E11.9 - Type 2 diabetes mellitus without complications SNOMED: 90764965 (6) Malnutrition ICD Codes: E46 - Unspecified protein-calorie malnutrition SNOMED: 96874269 (7) COPD (chronic obstructive pulmonary disease) ICD Codes: J44.9 - Chronic obstructive pulmonary disease, unspecified SNOMED: 51053157 (8) Suspected COVID-19 virus infection ICD Codes: Z20.828 - Contact with and (suspected) exposure to other viral communicable diseases SNOMED: 214239289 Status: unchanged Assessment/Plan: pt diet o2 pulm tx prn abx bp bs control cbc bmp am Subjective Constitutional: Reports: weakness Allergies: Coded Allergies: No Known Allergies (Unverified , 03/16/20) All Systems: reviewed and negative except above Subjective sleepy calm Objective Last 24 Hour Vital Signs Date Time Temp Pulse Resp B/P (MAP) Pulse Ox O2 Delivery O2 Flow Rate FiO2 03/18/20 09:49 76 109/61 03/18/20 04:00 97.7 73 21 131/67 (88) 94 03/18/20 04:00 74 03/18/20 00:00 72 03/18/20 00:00 97.7 78 19 104/52 (69) 94 03/17/20 21:37 99.0 03/17/20 21:03 96 111/53 03/17/20 21:00 Room Air 03/17/20 20:00 101.8 96 20 111/53 (72) 89 03/17/20 20:00 96 03/17/20 18:15 98.0 81 20 110/61 (77) 96 03/17/20 15:49 84 03/17/20 12:00 98.9 73 20 112/60 (77) 95 03/17/20 11:21 71 Intake and Output 03/17/20 03/18/20 19:00 07:00 Intake Total 70 ml 770 ml Balance 70 ml 770 ml Intake Tube Feeding 70 ml 770 ml # Voids 3 5 Laboratory Tests 03/18/20 04:00: Sodium Level 137, Potassium Level 5.0, Chloride Level 102, Carbon Dioxide Level 29, Anion Gap 6, Blood Urea Nitrogen 15, Creatinine 0.7, Estimat Glomerular Filtration Rate > 60, Glucose Level 135H, Calcium Level 8.3L 03/18/20 06:15: White Blood Count 6.1, Red Blood Count 4.35L, Hemoglobin 13.5L, Hematocrit 38.8L , Mean Corpuscular Volume 89, Mean Corpuscular Hemoglobin 31.0, Mean Corpuscular Hemoglobin Concent 34.7, Red Cell Distribution Width 12.1, Platelet Count 152, Mean Platelet Volume 8.0, Neutrophils (%) (Auto) 79.2H, Lymphocytes ( %) (Auto) 10.5L, Monocytes (%) (Auto) 8.3, Eosinophils (%) (Auto) 1.0, Basophils (%) (Auto) 1.0 Height (Feet): 5 Height (Inches): 7.00 Weight (Pounds): 146 General Appearance: lethargic EENT: normal ENT inspection Neck: normal alignment Cardiovascular: normal rate, regular rhythm Respiratory/Chest: no respiratory distress, no accessory muscle use Extremities: normal inspection Skin: normal pigmentation Wagner Mendoza DO March 18, 2020 10:09
--- NOTE | 2020-03-18 11:03 | Infectious Diseases Prog Note ---
Assessment/Plan Assessment/Plan antibiotics : ceftriaxone A 1. pneumonia r/o COVID pneumonia 2. diabetes mellitus 3. hypertension 4. dementia P 1. continue ceftriaxone 2. will follow up cultures 3. continue isolation Subjective ROS Limited/Unobtainable: Yes Allergies: Coded Allergies: No Known Allergies (Unverified , 03/16/20) Objective Vital Signs Last 24 Hour Vital Signs Date Time Temp Pulse Resp B/P (MAP) Pulse Ox O2 Delivery O2 Flow Rate FiO2 03/18/20 09:49 76 109/61 03/18/20 04:00 97.7 73 21 131/67 (88) 94 03/18/20 04:00 74 03/18/20 00:00 72 03/18/20 00:00 97.7 78 19 104/52 (69) 94 03/17/20 21:37 99.0 03/17/20 21:03 96 111/53 03/17/20 21:00 Room Air 03/17/20 20:00 101.8 96 20 111/53 (72) 89 03/17/20 20:00 96 03/17/20 18:15 98.0 81 20 110/61 (77) 96 03/17/20 15:49 84 03/17/20 12:00 98.9 73 20 112/60 (77) 95 03/17/20 11:21 71 Height (Feet): 5 Height (Inches): 7.00 Weight (Pounds): 146 Microbiology Date/Time Source Procedure Growth Status 03/16/20 15:32 Blood Blood Culture - Preliminary NO GROWTH AFTER 24 HOURS Resulted 03/16/20 15:05 Blood Blood Culture - Preliminary NO GROWTH AFTER 24 HOURS Resulted 03/16/20 15:32 Nasal Nares MRSA Culture - Final Staphylococcus Aureus - Mrsa Complete 03/16/20 17:05 Urine,Clean Catch Urine Culture - Preliminary NO GROWTH AFTER 24 HOURS Resulted 03/16/20 15:32 Rectum Received Laboratory Tests Test 03/18/20 04:00 03/18/20 06:15 Sodium Level 137 MMOL/L (136-145) Potassium Level 5.0 MMOL/L (3.5-5.1) Chloride Level 102 MMOL/L (98-107) Carbon Dioxide Level 29 MMOL/L (21-32) Anion Gap 6 mmol/L (5-15) Blood Urea Nitrogen 15 mg/dL (7-18) Creatinine 0.7 MG/DL (0.55-1.30) Estimat Glomerular Filtration Rate > 60 mL/min (>60) Glucose Level 135 MG/DL (74-106) H Calcium Level 8.3 MG/DL (8.5-10.1) L White Blood Count 6.1 K/UL (4.8-10.8) Red Blood Count 4.35 M/UL (4.70-6.10) L Hemoglobin 13.5 G/DL (14.2-18.0) L Hematocrit 38.8 % (42.0-52.0) L Mean Corpuscular Volume 89 FL (80-99) Mean Corpuscular Hemoglobin 31.0 PG (27.0-31.0) Mean Corpuscular Hemoglobin Concent 34.7 G/DL (32.0-36.0) Red Cell Distribution Width 12.1 % (11.6-14.8) Platelet Count 152 K/UL (150-450) Mean Platelet Volume 8.0 FL (6.5-10.1) Neutrophils (%) (Auto) 79.2 % (45.0-75.0) H Lymphocytes (%) (Auto) 10.5 % (20.0-45.0) L Monocytes (%) (Auto) 8.3 % (1.0-10.0) Eosinophils (%) (Auto) 1.0 % (0.0-3.0) Basophils (%) (Auto) 1.0 % (0.0-2.0) Current Medications Medications (Trade) Dose Ordered Sig/Emma Route PRN Reason Start Time Stop Time Status Last Admin Dose Admin Acetaminophen (Tylenol) 650 mg Q4H PRN GT Temp >100.5 03/16/20 21:45 04/15/20 21:44 03/17/20 21:02 Ceftriaxone Sodium 1 gm/ Dextrose 55 ml @ 110 mls/hr DAILY IVPB 03/17/20 09:00 03/24/20 08:59 03/18/20 09:48 Dextrose (Dextrose 50%) 25 ml Q30M PRN IV Hypoglycemia 03/16/20 21:45 06/14/20 21:44 Dextrose (Dextrose 50%) 50 ml Q30M PRN IV Hypoglycemia 03/16/20 21:45 06/14/20 21:44 Docusate Sodium (Colace) 250 mg DAILY GT 03/17/20 09:00 04/16/20 08:59 03/18/20 09:49 Insulin Aspart (NovoLOG) BEFORE MEALS AND HS SUBQ 03/17/20 06:30 06/15/20 06:29 Magnesium Hydroxide (Mom) 30 ml DAILY GT 03/17/20 09:00 04/16/20 08:59 03/18/20 09:48 Memantine (Namenda) 5 mg BID GT 03/17/20 09:00 04/16/20 08:59 03/18/20 09:49 Metformin HCl (Glucophage) 500 mg BID ORAL 03/17/20 09:00 04/16/20 08:59 03/18/20 09:50 Metoprolol Tartrate (Lopressor) 25 mg EVERY 12 HOURS GT 03/17/20 09:00 06/15/20 08:59 03/18/20 09:49 Pravastatin Sodium (Pravachol) 40 mg BEDTIME GT 03/17/20 21:00 04/16/20 20:59 03/17/20 21:03 Kesha Lewis MD March 18, 2020 11:03
--- NOTE | 2020-03-18 11:25 | NUR ---
P.T Note: PT eval completed. Patient is at baseline level of function. No further skilled PT needed at this time. Recommend DC to prior living arrangement. Thank you for this referral.
--- NOTE | 2020-03-18 11:58 | NUR ---
RD ASSESSMENT & RECOMMENDATIONS SEE CARE ACTIVITY FOR COMPLETE ASSESSMENT DAILY ESTIMATED NEEDS: Needs based on DM, pulmonary 66.4kg 25-30 kcals/kg total kcals 1.25-1.5 g protein/kg 83-100 g total protein 25-30 mL/kg total fluid mLs NUTRITION DIAGNOSIS: Swallowing difficulty r/t dysphagia as evidenced by pt is GT dependent. CURRENT TF: Glucerna 1.2 @70ml/hr x20 hrs ENTERAL NUTRITION RECOMMENDATIONS: rec TF CHANGE TO GLUCERNA 1.5 as 1.2 is OOS-> goal 60ml/hr x20hrs to provide 1200ml, 1800 kcal, 99g pro, 911ml free H2O - Glucerna 1.2 OOS, rec to substitute w/ Glucerna 1.5, start @30ml/hr for 6 hrs. - Advance as tolerated 10ml/hr q4-6 hrs to goal. - Flush per MD. HOB over 30 degrees. PARENTERAL NUTRITION RECOMMENDATIONS: D/AA Rate: IL Rate: Total Rate: Volume: % Dextrose: % AA: Energy (kcals/kg): Protein (g/kg protein): Nonprotein KCALS: GIR (mg CHO/kg/min): % Fat KCALS: NCP: N Ratio: TPN Comment: ADDITIONAL RECOMMENDATIONS: 1) Maintain calibrated bed scale wts 2) Rec WOUND CARE NURSE EVAL for wounds Add STEVEN BID to GT 3) Monitor lytes and hydration status w/ TF
--- NOTE | 2020-03-18 11:59 | NUR ---
RD ASSESSMENT & RECOMMENDATIONS SEE CARE ACTIVITY FOR COMPLETE ASSESSMENT DAILY ESTIMATED NEEDS: Needs based on DM, pulmonary 66.4kg 25-30 kcals/kg total kcals 1.25-1.5 g protein/kg 83-100 g total protein 25-30 mL/kg total fluid mLs NUTRITION DIAGNOSIS: Swallowing difficulty r/t dysphagia as evidenced by pt is GT dependent. CURRENT TF: Glucerna 1.2 @70ml/hr x20 hrs ENTERAL NUTRITION RECOMMENDATIONS: rec TF CHANGE TO GLUCERNA 1.5 as 1.2 is OOS-> goal 60ml/hr x20hrs to provide 1200ml, 1800 kcal, 99g pro, 911ml free H2O - Glucerna 1.2 OOS, rec to substitute w/ Glucerna 1.5, start @30ml/hr for 6 hrs. - Advance as tolerated 10ml/hr q4-6 hrs to goal. - Flush per MD. HOB over 30 degrees. ADDITIONAL RECOMMENDATIONS: 1) Maintain calibrated bed scale wts 2) Rec WOUND CARE NURSE EVAL for wounds Add STEVEN BID to GT 3) Monitor lytes and hydration status w/ TF
[2020-03-18 12:00] VITALS: BP 151/98
--- NOTE | 2020-03-18 12:30 | NUR ---
CASE MANAGEMENT:REVIEW 69 YR OLD MALE BIBA FROM [facility] CC: GENERALIZED WEAKNESS SI: LLL PYURIA. SUSPECTED COVID 97.3 74 16 97/42 99% ON RA K+5.7 BUN+19 AST+55 IS: 1L NS BOLUS IV AZITHROMYCIN IV ROCEPHIN ASA GT 500CC NS BOLUS COVID [address] HEAD BLOOD CX CHEST XRAY : TO TELEMETRY DCP: FROM [facility] PLAN: F/U ON PENDING COVID 19 SWAB
[2020-03-18 16:00] VITALS: BP 119/60
--- NOTE | 2020-03-18 19:00 | NUR ---
NURSE NOTES: RECEIVED REPORT FROM ONEYDA FLORES. AAOX3, VERBALLY RESPONSIVE ALTHOUGH DELAYED, AND ABLE TO MAKE NEEDS KNOWN. PATIENT SUPINE WITH BILTERAL HEELS ELEVATED. NO COMPLAINTS OF PAIN OR DISCOMFORT AT THIS TIME. BREATHING IS EVEN AND UNLABORED ON 2L NC, NO S/SX OF DISTRESS. GT FEEDING RUNNING AT PRESCRIBED RATE WITH RESIDUAL OF 10ML, GT PATENT WITH NO S/SX OF INFECTION. IV SITE ON RIGHT HAND ASYMPTOMATIC, PATENT AND INTACT, SALINE-LOCKED. FALL AND ASPIRATION PRECAUTIONS IN PLACE. CONTACT AND DROPLET PRECAUTIONS IMPLEMENTED. BED LOCKED AND IN LOWEST POSITION WITH SIDERAILS UP X 3. CALL LIGHT WITHIN REACH. WILL CONTINUE TO MONITOR FOR ANY CHANGES.
[2020-03-18] MEDS ORDERED: ACETAMINOPHEN325 M1 GT (19:06)
[2020-03-18] MEDS ORDERED: METFORMIN HCL500 M1 GT (19:10)
--- NOTE | 2020-03-18 19:20 | NUR ---
HAND-OFF: Report given to Rossy/RN, Patient is in Stable condition. Endorsed plan of care.
[2020-03-18 20:00] VITALS: BP 102/55
[2020-03-19] VITALS: BP 110/54
[2020-03-19 04:00] VITALS: BP 117/60
[2020-03-19] MEDS: NovoLOG Insulin Flexpen SUBQ SCH ×4 (06:30→21:00)
--- NOTE | 2020-03-19 06:30 | NUR ---
NURSE NOTES: BS IN AM WAS 207, BUT PATIENT REFUSED INSULIN ADMINISTRATION. 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 EDUCATED PATIENT ON PURPOSE OF INSULIN WHILE HOSPITALIZED, BUT PATIENT STILL REFUSED. CONDOM CATHETER APPLIED, IV RE-INSERTED ON LEFT HAND 22G SALINE-LOCKED.
[2020-03-19 06:31] LABS: BASOPHILS % (AUTO) 0.6 % (0.0-2.0); EOSINOPHILS % (AUTO) 0.3 % (0.0-3.0); HEMATOCRIT 38.5 % (42.0-52.0); HEMOGLOBIN 13.2 G/DL (14.2-18.0); LYMPHOCYTES % (AUTO) 5.4 % (20.0-45.0); MEAN CORPUSCULAR VOLUME 89 FL (80-99); MONOCYTES % (AUTO) 10.4 % (1.0-10.0); NEUTROPHILS % (AUTO) 83.3 % (45.0-75.0); PLATELET COUNT 198 K/UL (150-450); RED BLOOD COUNT 4.33 M/UL (4.70-6.10); RED CELL DISTRIBUTION WIDTH 11.8 % (11.6-14.8); WHITE BLOOD COUNT 7.4 K/UL (4.8-10.8)
[2020-03-19 06:39] LABS: ANION GAP 6 mmol/L (5-15); BLOOD UREA NITROGEN 17 mg/dL (7-18); CARBON DIOXIDE 29 MMOL/L (21-32); CHLORIDE 103 MMOL/L (98-107); CREATININE 0.7 MG/DL (0.55-1.30); POTASSIUM 4.8 MMOL/L (3.5-5.1); SODIUM 138 MMOL/L (136-145)
--- NOTE | 2020-03-19 07:42 | NUR ---
HAND-OFF: Report given to ONEYDA FLORES. PLAN OF CARE ENDORSED.
[2020-03-19 08:00] VITALS: BP 102/60
[2020-03-19] MEDS: Milk of Magnesia 30ml Ud GT SCH (09:26)
[2020-03-19] MEDS: Memantine 5 MG TAB GT SCH ×2 (09:26→17:54)
[2020-03-19] MEDS: metFORMIN 500mg tab ORAL SCH ×2 (09:26→17:54)
[2020-03-19] MEDS: Docusate 100mg/10ml Liq GT SCH (09:27)
[2020-03-19] MEDS: cefTRIAXone 1 GM in D5W 55 ML IVPB SCH (09:27)
--- NOTE | 2020-03-19 10:54 | Infectious Diseases Prog Note ---
Assessment/Plan Assessment/Plan antibiotics : ceftriaxone A 1. pneumonia r/o COVID pneumonia 2. diabetes mellitus 3. hypertension 4. dementia P 1. continue ceftriaxone 2. will follow up cultures 3. continue isolation Subjective ROS Limited/Unobtainable: Yes Allergies: Coded Allergies: No Known Allergies (Unverified , 03/16/20) Objective Vital Signs Last 24 Hour Vital Signs Date Time Temp Pulse Resp B/P (MAP) Pulse Ox O2 Delivery O2 Flow Rate FiO2 03/19/20 09:26 90 102/60 03/19/20 09:00 Room Air 03/19/20 08:00 92 03/19/20 08:00 98.0 90 18 102/60 (74) 100 03/19/20 04:00 99.0 98 20 117/60 (79) 100 03/19/20 04:00 94 03/19/20 00:00 99.7 93 20 110/54 (72) 95 03/19/20 00:00 92 03/18/20 21:00 89 102/55 03/18/20 21:00 Room Air 03/18/20 20:00 89 03/18/20 20:00 99.9 89 18 102/55 (71) 95 03/18/20 16:00 76 03/18/20 16:00 98.4 79 18 119/60 (79) 95 03/18/20 12:00 70 03/18/20 12:00 98.2 92 18 151/98 (115) 95 Height (Feet): 5 Height (Inches): 7.00 Weight (Pounds): 146 Microbiology Date/Time Source Procedure Growth Status 03/16/20 15:32 Blood Blood Culture - Preliminary NO GROWTH AFTER 24 HOURS Resulted 03/16/20 15:05 Blood Blood Culture - Preliminary NO GROWTH AFTER 24 HOURS Resulted 03/16/20 15:32 Nasal Nares MRSA Culture - Final Staphylococcus Aureus - Mrsa Complete 03/16/20 17:05 Urine,Clean Catch Urine Culture - Final NO GROWTH AFTER 48 HOURS Complete 03/16/20 15:32 Rectum Received Laboratory Tests Test 03/19/20 05:45 White Blood Count 7.4 K/UL (4.8-10.8) Red Blood Count 4.33 M/UL (4.70-6.10) L Hemoglobin 13.2 G/DL (14.2-18.0) L Hematocrit 38.5 % (42.0-52.0) L Mean Corpuscular Volume 89 FL (80-99) Mean Corpuscular Hemoglobin 30.6 PG (27.0-31.0) Mean Corpuscular Hemoglobin Concent 34.4 G/DL (32.0-36.0) Red Cell Distribution Width 11.8 % (11.6-14.8) Platelet Count 198 K/UL (150-450) Mean Platelet Volume 6.6 FL (6.5-10.1) Neutrophils (%) (Auto) 83.3 % (45.0-75.0) H Lymphocytes (%) (Auto) 5.4 % (20.0-45.0) L Monocytes (%) (Auto) 10.4 % (1.0-10.0) H Eosinophils (%) (Auto) 0.3 % (0.0-3.0) Basophils (%) (Auto) 0.6 % (0.0-2.0) Sodium Level 138 MMOL/L (136-145) Potassium Level 4.8 MMOL/L (3.5-5.1) Chloride Level 103 MMOL/L (98-107) Carbon Dioxide Level 29 MMOL/L (21-32) Anion Gap 6 mmol/L (5-15) Blood Urea Nitrogen 17 mg/dL (7-18) Creatinine 0.7 MG/DL (0.55-1.30) Estimat Glomerular Filtration Rate > 60 mL/min (>60) Glucose Level 225 MG/DL (74-106) H Calcium Level 8.0 MG/DL (8.5-10.1) L Current Medications Medications (Trade) Dose Ordered Sig/Emma Route PRN Reason Start Time Stop Time Status Last Admin Dose Admin Acetaminophen (Tylenol) 650 mg Q4H PRN GT Temp >100.5 03/16/20 21:45 04/15/20 21:44 03/17/20 21:02 Ceftriaxone Sodium 1 gm/ Dextrose 55 ml @ 110 mls/hr DAILY IVPB 03/17/20 09:00 03/24/20 08:59 03/19/20 09:27 Dextrose (Dextrose 50%) 25 ml Q30M PRN IV Hypoglycemia 03/16/20 21:45 06/14/20 21:44 Dextrose (Dextrose 50%) 50 ml Q30M PRN IV Hypoglycemia 03/16/20 21:45 06/14/20 21:44 Docusate Sodium (Colace) 250 mg DAILY GT 03/17/20 09:00 04/16/20 08:59 03/19/20 09:27 Insulin Aspart (NovoLOG) BEFORE MEALS AND HS SUBQ 03/17/20 06:30 06/15/20 06:29 Magnesium Hydroxide (Mom) 30 ml DAILY GT 03/17/20 09:00 04/16/20 08:59 03/19/20 09:26 Memantine (Namenda) 5 mg BID GT 03/17/20 09:00 04/16/20 08:59 03/19/20 09:26 Metformin HCl (Glucophage) 500 mg BID ORAL 03/17/20 09:00 04/16/20 08:59 03/19/20 09:26 Metoprolol Tartrate (Lopressor) 25 mg EVERY 12 HOURS GT 03/17/20 09:00 06/15/20 08:59 03/19/20 09:26 Pravastatin Sodium (Pravachol) 40 mg BEDTIME GT 03/17/20 21:00 04/16/20 20:59 03/18/20 21:38 Kesha Lewis MD March 19, 2020 10:54
[2020-03-19 12:00] VITALS: BP 108/57
--- NOTE | 2020-03-19 13:26 | General Progress Note ---
Assessment/Plan Problem List: (1) CVA (cerebral vascular accident) ICD Codes: I63.9 - Cerebral infarction, unspecified SNOMED: 999299194 (2) UTI (urinary tract infection) ICD Codes: N39.0 - Urinary tract infection, site not specified SNOMED: 00333942 (3) Pneumonia ICD Codes: J18.9 - Pneumonia, unspecified organism SNOMED: 514960302 (4) HTN (hypertension) ICD Codes: I10 - Essential (primary) hypertension SNOMED: 41134064 (5) Diabetes ICD Codes: E11.9 - Type 2 diabetes mellitus without complications SNOMED: 03871824 (6) Malnutrition ICD Codes: E46 - Unspecified protein-calorie malnutrition SNOMED: 59638368 (7) COPD (chronic obstructive pulmonary disease) ICD Codes: J44.9 - Chronic obstructive pulmonary disease, unspecified SNOMED: 49603568 (8) Suspected COVID-19 virus infection ICD Codes: Z20.828 - Contact with and (suspected) exposure to other viral communicable diseases SNOMED: 442730145 Status: unchanged Assessment/Plan: pt diet o2 pulm tx prn abx bp bs control cbc bmp am Subjective Constitutional: Reports: weakness Allergies: Coded Allergies: No Known Allergies (Unverified , 03/16/20) All Systems: reviewed and negative except above Subjective sleepy calm Objective Last 24 Hour Vital Signs Date Time Temp Pulse Resp B/P (MAP) Pulse Ox O2 Delivery O2 Flow Rate FiO2 03/19/20 12:00 98.1 76 18 108/57 (74) 91 03/19/20 12:00 77 03/19/20 09:26 90 102/60 03/19/20 09:00 Room Air 03/19/20 08:00 92 03/19/20 08:00 98.0 90 18 102/60 (74) 100 03/19/20 04:00 99.0 98 20 117/60 (79) 100 03/19/20 04:00 94 03/19/20 00:00 99.7 93 20 110/54 (72) 95 03/19/20 00:00 92 03/18/20 21:00 89 102/55 03/18/20 21:00 Room Air 03/18/20 20:00 89 03/18/20 20:00 99.9 89 18 102/55 (71) 95 03/18/20 16:00 76 03/18/20 16:00 98.4 79 18 119/60 (79) 95 Intake and Output 03/18/20 03/19/20 19:00 07:00 Output Total 200 ml 650 ml Balance -200 ml -650 ml Output Urine Total 200 ml 650 ml # Voids 2 1 # Bowel Movements 1 Laboratory Tests 03/19/20 05:45: White Blood Count 7.4, Red Blood Count 4.33L, Hemoglobin 13.2L, Hematocrit 38.5L , Mean Corpuscular Volume 89, Mean Corpuscular Hemoglobin 30.6, Mean Corpuscular Hemoglobin Concent 34.4, Red Cell Distribution Width 11.8, Platelet Count 198, Mean Platelet Volume 6.6, Neutrophils (%) (Auto) 83.3H, Lymphocytes ( %) (Auto) 5.4L, Monocytes (%) (Auto) 10.4H, Eosinophils (%) (Auto) 0.3, Basophils (%) (Auto) 0.6, Sodium Level 138, Potassium Level 4.8, Chloride Level 103, Carbon Dioxide Level 29, Anion Gap 6, Blood Urea Nitrogen 17, Creatinine 0.7, Estimat Glomerular Filtration Rate > 60, Glucose Level 225H, Calcium Level 8.0L Height (Feet): 5 Height (Inches): 7.00 Weight (Pounds): 146 General Appearance: lethargic EENT: normal ENT inspection Neck: normal alignment Cardiovascular: normal rate, regular rhythm Respiratory/Chest: no respiratory distress, no accessory muscle use Extremities: normal inspection Skin: normal pigmentation Wagner Mendoza DO March 19, 2020 13:26
--- NOTE | 2020-03-19 15:19 | Pulmonology Progress Note ---
Subjective ROS Limited/Unobtainable: Yes Interval Events: None new Constitutional: Reports: no symptoms HEENT: Repors: no symptoms Respiratory: Reports: no symptoms Cardiovascular: Reports: no symptoms Gastrointestinal/Abdominal: Reports: no symptoms Allergies: Coded Allergies: No Known Allergies (Unverified , 03/16/20) All Systems: reviewed and negative except above Objective Last 24 Hour Vital Signs Date Time Temp Pulse Resp B/P (MAP) Pulse Ox O2 Delivery O2 Flow Rate FiO2 03/19/20 12:00 98.1 76 18 108/57 (74) 91 03/19/20 12:00 77 03/19/20 09:26 90 102/60 03/19/20 09:00 Room Air 03/19/20 08:00 92 03/19/20 08:00 98.0 90 18 102/60 (74) 100 03/19/20 04:00 99.0 98 20 117/60 (79) 100 03/19/20 04:00 94 03/19/20 00:00 99.7 93 20 110/54 (72) 95 03/19/20 00:00 92 03/18/20 21:00 89 102/55 03/18/20 21:00 Room Air 03/18/20 20:00 89 03/18/20 20:00 99.9 89 18 102/55 (71) 95 03/18/20 16:00 76 03/18/20 16:00 98.4 79 18 119/60 (79) 95 Intake and Output 03/18/20 03/19/20 19:00 07:00 Output Total 200 ml 650 ml Balance -200 ml -650 ml Output Urine Total 200 ml 650 ml # Voids 2 1 # Bowel Movements 1 General Appearance: no acute distress HEENT: normocephalic Respiratory: chest wall non-tender, lungs clear Cardiovascular: normal peripheral pulses Abdomen: normal bowel sounds Microbiology Date/Time Source Procedure Growth Status 03/16/20 15:32 Blood Blood Culture - Preliminary NO GROWTH AFTER 24 HOURS Resulted 03/16/20 15:32 Nasal Nares MRSA Culture - Final Staphylococcus Aureus - Mrsa Complete 03/16/20 17:05 Urine,Clean Catch Urine Culture - Final NO GROWTH AFTER 48 HOURS Complete 03/16/20 15:32 Rectum - Final NO CARBAPENEM-RESISTANT ENTEROBACTERI... Complete 03/16/20 15:32 Rectum VRE Culture - Preliminary Enterococcus Faecalis - Vre Resulted Laboratory Tests 03/19/20 05:45: White Blood Count 7.4, Red Blood Count 4.33L, Hemoglobin 13.2L, Hematocrit 38.5L , Mean Corpuscular Volume 89, Mean Corpuscular Hemoglobin 30.6, Mean Corpuscular Hemoglobin Concent 34.4, Red Cell Distribution Width 11.8, Platelet Count 198, Mean Platelet Volume 6.6, Neutrophils (%) (Auto) 83.3H, Lymphocytes ( %) (Auto) 5.4L, Monocytes (%) (Auto) 10.4H, Eosinophils (%) (Auto) 0.3, Basophils (%) (Auto) 0.6, Sodium Level 138, Potassium Level 4.8, Chloride Level 103, Carbon Dioxide Level 29, Anion Gap 6, Blood Urea Nitrogen 17, Creatinine 0.7, Estimat Glomerular Filtration Rate > 60, Glucose Level 225H, Calcium Level 8.0L Current Medications Medications (Trade) Dose Ordered Sig/Emma Route PRN Reason Start Time Stop Time Status Last Admin Dose Admin Acetaminophen (Tylenol) 650 mg Q4H PRN GT Temp >100.5 03/16/20 21:45 04/15/20 21:44 03/17/20 21:02 Ceftriaxone Sodium 1 gm/ Dextrose 55 ml @ 110 mls/hr DAILY IVPB 03/17/20 09:00 03/24/20 08:59 03/19/20 09:27 Dextrose (Dextrose 50%) 25 ml Q30M PRN IV Hypoglycemia 03/16/20 21:45 06/14/20 21:44 Dextrose (Dextrose 50%) 50 ml Q30M PRN IV Hypoglycemia 03/16/20 21:45 06/14/20 21:44 Docusate Sodium (Colace) 250 mg DAILY GT 03/17/20 09:00 04/16/20 08:59 03/19/20 09:27 Insulin Aspart (NovoLOG) BEFORE MEALS AND HS SUBQ 03/17/20 06:30 06/15/20 06:29 Magnesium Hydroxide (Mom) 30 ml DAILY GT 03/17/20 09:00 04/16/20 08:59 03/19/20 09:26 Memantine (Namenda) 5 mg BID GT 03/17/20 09:00 04/16/20 08:59 03/19/20 09:26 Metformin HCl (Glucophage) 500 mg BID ORAL 03/17/20 09:00 04/16/20 08:59 03/19/20 09:26 Metoprolol Tartrate (Lopressor) 25 mg EVERY 12 HOURS GT 03/17/20 09:00 06/15/20 08:59 03/19/20 09:26 Pravastatin Sodium (Pravachol) 40 mg BEDTIME GT 03/17/20 21:00 04/16/20 20:59 03/18/20 21:38 Assessment/Plan Assessment/Plan IMPRESSION: 1. Probable pneumonia. 2. [facility] resident. 3. Rule out COVID-19. 4. Hypertension. 5. Previous TIA. 6. Diabetes mellitus. 7. Chronic G-tube. 8. Dementia. DISCUSSION: Continue medications. 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 Currently, the patient has received antibiotics. He is on insulin sliding scale insulin. Await COVID 19 pcr German Islas M.D. German Islas MD March 19, 2020 15:19
[2020-03-19 16:00] VITALS: BP 100/56
--- NOTE | 2020-03-19 16:35 | NUR ---
NURSE NOTES: Blood Sugar was 177 this morning and 211 this afternoon But patient refused insulin administration. 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 Also educated patient about turning every hour to prevent pressure injury. verbalized understanding.
--- NOTE | 2020-03-19 17:58 | NUR ---
NURSE NOTES:WOUND CARE NOTES:Pt presented on admission with multiple pressure injuries.and hyperpigmentations from historical wounds. Resolving pressure injury L ischium. Entiat epithelial at base of wound with surrounding hyperpigmented borders. Historical scar noted tin close proximity. Historical scar noted to L gluteal cheek . An area of hyperpigmentation from previous wound R Ischium. Callused area with surrounding non-blanching erythema L lateral Malleolus. L Heel is Boggy with non-Blanching erythema. R heel and Plantar aspect of R heel boggy with non-blanching erythema. Tx.Plan: Apply Moisture Barrier Paste to Sacrum,R and L Ischial Tuberosities. Cover each site with Optifoam drsgs. Change every 3 days and prn. Apply Moisture Barrier Paste to Scrotal area with each Incontinence Care. Apply Cavilon Skin Barrier to R and L heels and Malleoli Both Feet. Cover each area with Optifoam drsgs. Change every 7 days and prn. Reposition at least every 2 hours or as tolerated. Off-load heels with Pillow.
--- NOTE | 2020-03-19 19:29 | NUR ---
HAND-OFF: Report given to Cory/ONEYDA, Patient is in stable condition. Endorsed plan of care.
--- NOTE | 2020-03-19 19:30 | NUR ---
NURSE NOTES: Got report from Baylee RN. Pt in stable condition. No s/s of distress or discomfort noted. Pt resting in bed comfortably. Bed in low and locked position, call light within reach, bedside table within reach. Continue to monitor.
[2020-03-19 20:00] VITALS: BP 101/58
[2020-03-19] MEDS: Acetaminophen 650mg/20.3ml GT PRN (21:36)
[2020-03-20] VITALS: BP 100/58
[2020-03-20 04:00] VITALS: BP 103/55
[2020-03-20 05:59] LABS: BASOPHILS % (AUTO) 0.6 % (0.0-2.0); EOSINOPHILS % (AUTO) 1.6 % (0.0-3.0); HEMATOCRIT 40.1 % (42.0-52.0); HEMOGLOBIN 13.5 G/DL (14.2-18.0); LYMPHOCYTES % (AUTO) 6.2 % (20.0-45.0); MEAN CORPUSCULAR VOLUME 89 FL (80-99); MONOCYTES % (AUTO) 10.8 % (1.0-10.0); NEUTROPHILS % (AUTO) 80.8 % (45.0-75.0); PLATELET COUNT 224 K/UL (150-450); WHITE BLOOD COUNT 7.6 K/UL (4.8-10.8)
[2020-03-20] MEDS: NovoLOG Insulin Flexpen SUBQ SCH ×2 (06:25→11:30)
[2020-03-20 06:40] LABS: ANION GAP 6 mmol/L (5-15); BLOOD UREA NITROGEN 17 mg/dL (7-18); CALCIUM 8.5 MG/DL (8.5-10.1); CARBON DIOXIDE 31 MMOL/L (21-32); CHLORIDE 104 MMOL/L (98-107); CREATININE 0.8 MG/DL (0.55-1.30); POTASSIUM 4.9 MMOL/L (3.5-5.1); SODIUM 141 MMOL/L (136-145)
--- NOTE | 2020-03-20 07:30 | NUR ---
HAND-OFF: Report given to Renetta CALL.
[2020-03-20 08:00] VITALS: BP 119/58
--- NOTE | 2020-03-20 08:02 | NUR ---
NURSE NOTES: Received report from ONEYDA Cervantes. Observed pt sleeping, no s/sx of acute distress. Breathing even and unlabored in 2L NC. Tube feeding is off as ordered, will turn it on at 10am. IV site patent and asymptomatic. Bed on lowest position, call light within reach. Will continue plan of care.
--- NOTE | 2020-03-20 08:30 | General Progress Note ---
Assessment/Plan Problem List: (1) CVA (cerebral vascular accident) ICD Codes: I63.9 - Cerebral infarction, unspecified SNOMED: 086168473 (2) UTI (urinary tract infection) ICD Codes: N39.0 - Urinary tract infection, site not specified SNOMED: 58748128 (3) Pneumonia ICD Codes: J18.9 - Pneumonia, unspecified organism SNOMED: 119399397 (4) HTN (hypertension) ICD Codes: I10 - Essential (primary) hypertension SNOMED: 81108998 (5) Diabetes ICD Codes: E11.9 - Type 2 diabetes mellitus without complications SNOMED: 67297597 (6) Malnutrition ICD Codes: E46 - Unspecified protein-calorie malnutrition SNOMED: 16764725 (7) COPD (chronic obstructive pulmonary disease) ICD Codes: J44.9 - Chronic obstructive pulmonary disease, unspecified SNOMED: 60976034 (8) Suspected COVID-19 virus infection ICD Codes: Z20.828 - Contact with and (suspected) exposure to other viral communicable diseases SNOMED: 695304241 Status: unchanged Assessment/Plan: pt diet o2 pulm tx prn abx bp bs control cbc bmp am Subjective Constitutional: Reports: weakness Allergies: Coded Allergies: No Known Allergies (Unverified , 03/16/20) All Systems: reviewed and negative except above Subjective sleepy calm Objective Last 24 Hour Vital Signs Date Time Temp Pulse Resp B/P (MAP) Pulse Ox O2 Delivery O2 Flow Rate FiO2 03/20/20 04:00 92 03/20/20 04:00 98.4 91 17 103/55 (71) 95 03/20/20 00:00 91 03/20/20 00:00 98.4 88 17 100/58 (72) 95 03/19/20 22:10 99.0 03/19/20 21:00 Room Air 03/19/20 21:00 90 101/58 03/19/20 20:00 86 03/19/20 20:00 100.0 90 18 101/58 (72) 95 03/19/20 16:00 97.9 80 18 100/56 (71) 95 03/19/20 16:00 78 03/19/20 12:00 98.1 76 18 108/57 (74) 91 03/19/20 12:00 77 03/19/20 09:26 90 102/60 03/19/20 09:00 Room Air Intake and Output 03/19/20 03/20/20 19:00 07:00 Output Total 325 ml 800 ml Balance -325 ml -800 ml Output Urine Total 325 ml 800 ml # Voids 2 # Bowel Movements 1 Laboratory Tests 03/20/20 05:35: White Blood Count 7.6, Red Blood Count 4.50L, Hemoglobin 13.5L, Hematocrit 40.1L , Mean Corpuscular Volume 89, Mean Corpuscular Hemoglobin 30.0, Mean Corpuscular Hemoglobin Concent 33.6, Red Cell Distribution Width 12.0, Platelet Count 224, Mean Platelet Volume 6.2L, Neutrophils (%) (Auto) 80.8H, Lymphocytes (%) (Auto) 6.2L, Monocytes (%) (Auto) 10.8H, Eosinophils (%) (Auto) 1.6, Basophils (%) (Auto) 0.6, Sodium Level 141, Potassium Level 4.9, Chloride Level 104, Carbon Dioxide Level 31, Anion Gap 6, Blood Urea Nitrogen 17, Creatinine 0.8, Estimat Glomerular Filtration Rate > 60, Glucose Level 236H, Calcium Level 8.5 Height (Feet): 5 Height (Inches): 7.00 Weight (Pounds): 145 General Appearance: lethargic EENT: normal ENT inspection Neck: normal alignment Cardiovascular: normal rate, regular rhythm Respiratory/Chest: no respiratory distress, no accessory muscle use Extremities: normal inspection Skin: normal pigmentation Wagner Mendoza DO March 20, 2020 08:30
--- NOTE | 2020-03-20 09:29 | NUR ---
CASE MANAGEMENT:REVIEW 03/20/20 SI: LLL PNEUMONIA COVID 19 NOT DETECTED 98.4 92 28 119/58 92% ON RA H/H-13.5/40.1 GLUCOSE+236 IS: IV ROCEPHIN Q24 LOPRESSOR GT Q12 METFORMIN GT BID NAMENDA GT BID SS INSULIN AC+HS : TELEMETRY STATUS DCP: FROM [facility]
--- NOTE | 2020-03-20 09:40 | NUR ---
DISCHARGE PLANNING REQUESTED DISCHARGE ORDER FROM DR VENTURA CLEARED FOR DISCHARGE BY DR CHUNG
[2020-03-20] MEDS: Milk of Magnesia 30ml Ud GT SCH (10:01)
[2020-03-20] MEDS: Memantine 5 MG TAB GT SCH (10:01)
[2020-03-20] MEDS: metFORMIN 500mg tab ORAL SCH (10:01)
[2020-03-20] MEDS: Docusate 100mg/10ml Liq GT SCH (10:02)
[2020-03-20] MEDS: cefTRIAXone 1 GM in D5W 55 ML IVPB SCH (10:02)
--- NOTE | 2020-03-20 10:22 | Infectious Diseases Prog Note ---
Assessment/Plan Assessment/Plan antibiotics : ceftriaxone A 1. pneumonia r/o COVID pneumonia 2. diabetes mellitus 3. hypertension 4. dementia P 1. continue ceftriaxone 2. will follow up cultures 3. continue isolation Subjective ROS Limited/Unobtainable: Yes Allergies: Coded Allergies: No Known Allergies (Unverified , 03/16/20) Objective Vital Signs Last 24 Hour Vital Signs Date Time Temp Pulse Resp B/P (MAP) Pulse Ox O2 Delivery O2 Flow Rate FiO2 03/20/20 10:01 92 119/58 03/20/20 08:00 98.4 92 18 119/58 (78) 92 03/20/20 04:00 92 03/20/20 04:00 98.4 91 17 103/55 (71) 95 03/20/20 00:00 91 03/20/20 00:00 98.4 88 17 100/58 (72) 95 03/19/20 22:10 99.0 03/19/20 21:00 Room Air 03/19/20 21:00 90 101/58 03/19/20 20:00 86 03/19/20 20:00 100.0 90 18 101/58 (72) 95 03/19/20 16:00 97.9 80 18 100/56 (71) 95 03/19/20 16:00 78 03/19/20 12:00 98.1 76 18 108/57 (74) 91 03/19/20 12:00 77 Height (Feet): 5 Height (Inches): 7.00 Weight (Pounds): 145 Laboratory Tests Test 03/20/20 05:35 White Blood Count 7.6 K/UL (4.8-10.8) Red Blood Count 4.50 M/UL (4.70-6.10) L Hemoglobin 13.5 G/DL (14.2-18.0) L Hematocrit 40.1 % (42.0-52.0) L Mean Corpuscular Volume 89 FL (80-99) Mean Corpuscular Hemoglobin 30.0 PG (27.0-31.0) Mean Corpuscular Hemoglobin Concent 33.6 G/DL (32.0-36.0) Red Cell Distribution Width 12.0 % (11.6-14.8) Platelet Count 224 K/UL (150-450) Mean Platelet Volume 6.2 FL (6.5-10.1) L Neutrophils (%) (Auto) 80.8 % (45.0-75.0) H Lymphocytes (%) (Auto) 6.2 % (20.0-45.0) L Monocytes (%) (Auto) 10.8 % (1.0-10.0) H Eosinophils (%) (Auto) 1.6 % (0.0-3.0) Basophils (%) (Auto) 0.6 % (0.0-2.0) Sodium Level 141 MMOL/L (136-145) Potassium Level 4.9 MMOL/L (3.5-5.1) Chloride Level 104 MMOL/L (98-107) Carbon Dioxide Level 31 MMOL/L (21-32) Anion Gap 6 mmol/L (5-15) Blood Urea Nitrogen 17 mg/dL (7-18) Creatinine 0.8 MG/DL (0.55-1.30) Estimat Glomerular Filtration Rate > 60 mL/min (>60) Glucose Level 236 MG/DL (74-106) H Calcium Level 8.5 MG/DL (8.5-10.1) Current Medications Medications (Trade) Dose Ordered Sig/Emma Route PRN Reason Start Time Stop Time Status Last Admin Dose Admin Acetaminophen (Tylenol) 650 mg Q4H PRN GT Temp >100.5 03/16/20 21:45 04/15/20 21:44 03/19/20 21:36 Ceftriaxone Sodium 1 gm/ Dextrose 55 ml @ 110 mls/hr DAILY IVPB 03/17/20 09:00 03/24/20 08:59 03/20/20 10:02 Dextrose (Dextrose 50%) 25 ml Q30M PRN IV Hypoglycemia 03/16/20 21:45 06/14/20 21:44 Dextrose (Dextrose 50%) 50 ml Q30M PRN IV Hypoglycemia 03/16/20 21:45 06/14/20 21:44 Docusate Sodium (Colace) 250 mg DAILY GT 03/17/20 09:00 04/16/20 08:59 03/20/20 10:02 Insulin Aspart (NovoLOG) BEFORE MEALS AND HS SUBQ 03/17/20 06:30 06/15/20 06:29 Magnesium Hydroxide (Mom) 30 ml DAILY GT 03/17/20 09:00 04/16/20 08:59 03/20/20 10:01 Memantine (Namenda) 5 mg BID GT 03/17/20 09:00 04/16/20 08:59 03/20/20 10:01 Metformin HCl (Glucophage) 500 mg BID ORAL 03/17/20 09:00 04/16/20 08:59 03/20/20 10:01 Metoprolol Tartrate (Lopressor) 25 mg EVERY 12 HOURS GT 03/17/20 09:00 06/15/20 08:59 03/20/20 10:01 Pravastatin Sodium (Pravachol) 40 mg BEDTIME GT 03/17/20 21:00 04/16/20 20:59 03/19/20 21:00 Kesha Lewis MD March 20, 2020 10:22
[2020-03-20 12:00] VITALS: BP 110/64
--- NOTE | 2020-03-20 12:38 | Pulmonology Progress Note ---
Subjective ROS Limited/Unobtainable: Yes Interval Events: None new Constitutional: Reports: no symptoms HEENT: Repors: no symptoms Respiratory: Reports: no symptoms Cardiovascular: Reports: no symptoms Gastrointestinal/Abdominal: Reports: no symptoms Allergies: Coded Allergies: No Known Allergies (Unverified , 03/16/20) All Systems: reviewed and negative except above Objective Last 24 Hour Vital Signs Date Time Temp Pulse Resp B/P (MAP) Pulse Ox O2 Delivery O2 Flow Rate FiO2 03/20/20 10:01 92 119/58 03/20/20 09:00 Room Air 03/20/20 08:00 98.4 92 18 119/58 (78) 92 03/20/20 07:34 88 03/20/20 04:00 92 03/20/20 04:00 98.4 91 17 103/55 (71) 95 03/20/20 00:00 91 03/20/20 00:00 98.4 88 17 100/58 (72) 95 03/19/20 22:10 99.0 03/19/20 21:00 Room Air 03/19/20 21:00 90 101/58 03/19/20 20:00 86 03/19/20 20:00 100.0 90 18 101/58 (72) 95 03/19/20 16:00 97.9 80 18 100/56 (71) 95 03/19/20 16:00 78 Intake and Output 03/19/20 03/20/20 19:00 07:00 Output Total 325 ml 800 ml Balance -325 ml -800 ml Output Urine Total 325 ml 800 ml # Voids 2 # Bowel Movements 1 General Appearance: no acute distress HEENT: normocephalic Respiratory: chest wall non-tender, lungs clear Cardiovascular: normal peripheral pulses Abdomen: normal bowel sounds Laboratory Tests 03/20/20 05:35: White Blood Count 7.6, Red Blood Count 4.50L, Hemoglobin 13.5L, Hematocrit 40.1L , Mean Corpuscular Volume 89, Mean Corpuscular Hemoglobin 30.0, Mean Corpuscular Hemoglobin Concent 33.6, Red Cell Distribution Width 12.0, Platelet Count 224, Mean Platelet Volume 6.2L, Neutrophils (%) (Auto) 80.8H, Lymphocytes (%) (Auto) 6.2L, Monocytes (%) (Auto) 10.8H, Eosinophils (%) (Auto) 1.6, Basophils (%) (Auto) 0.6, Sodium Level 141, Potassium Level 4.9, Chloride Level 104, Carbon Dioxide Level 31, Anion Gap 6, Blood Urea Nitrogen 17, Creatinine 0.8, Estimat Glomerular Filtration Rate > 60, Glucose Level 236H, Calcium Level 8.5 Current Medications Medications (Trade) Dose Ordered Sig/Emma Route PRN Reason Start Time Stop Time Status Last Admin Dose Admin Acetaminophen (Tylenol) 650 mg Q4H PRN GT Temp >100.5 03/16/20 21:45 04/15/20 21:44 03/19/20 21:36 Ceftriaxone Sodium 1 gm/ Dextrose 55 ml @ 110 mls/hr DAILY IVPB 03/17/20 09:00 03/24/20 08:59 03/20/20 10:02 Dextrose (Dextrose 50%) 25 ml Q30M PRN IV Hypoglycemia 03/16/20 21:45 06/14/20 21:44 Dextrose (Dextrose 50%) 50 ml Q30M PRN IV Hypoglycemia 03/16/20 21:45 06/14/20 21:44 Docusate Sodium (Colace) 250 mg DAILY GT 03/17/20 09:00 04/16/20 08:59 03/20/20 10:02 Insulin Aspart (NovoLOG) BEFORE MEALS AND HS SUBQ 03/17/20 06:30 06/15/20 06:29 Magnesium Hydroxide (Mom) 30 ml DAILY GT 03/17/20 09:00 04/16/20 08:59 03/20/20 10:01 Memantine (Namenda) 5 mg BID GT 03/17/20 09:00 04/16/20 08:59 03/20/20 10:01 Metformin HCl (Glucophage) 500 mg BID ORAL 03/17/20 09:00 04/16/20 08:59 03/20/20 10:01 Metoprolol Tartrate (Lopressor) 25 mg EVERY 12 HOURS GT 03/17/20 09:00 06/15/20 08:59 03/20/20 10:01 Pravastatin Sodium (Pravachol) 40 mg BEDTIME GT 03/17/20 21:00 04/16/20 20:59 03/19/20 21:00 Assessment/Plan Assessment/Plan IMPRESSION: 1. No new CVA 2. [facility] resident. 3. Is negative COVID-19 pcr x1 4. Hypertension. 5. Previous TIA. 6. Diabetes mellitus. 7. Chronic G-tube. 8. Dementia. DISCUSSION: Initial COVID 19 pcr negative OK to dc Candida Bradley Omar Syed MD March 20, 2020 12:38
--- NOTE | 2020-03-20 13:52 | NUR ---
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
--- NOTE | 2020-03-20 14:59 | NUR ---
NURSE NOTES: Called [facility] to give report. Per vest front presser, no one is available to take report and to call back in 15mins.
--- NOTE | 2020-03-20 15:23 | NUR ---
NURSE NOTES: Gave report to ONEYDA Jurado at [facility].
[2020-03-20 16:00] VITALS: BP 107/50
--- NOTE | 2020-03-20 16:30 | NUR ---
NURSE NOTES: Pt left the unit in stable condition, picked up by ambulance personnel. Report given to ambulance personnel and ONEYDA Jurado of [facility]. Tele monitor and IV removed, no bleeding noted. DC instructions given. Pt does not have any belongings. Pictures of wounds taken and uploaded. Mask provided to the pt.
--- NOTE | 2020-03-21 16:15 | Discharge Summary ---
Discharge Summary Discharge Summary _ DATE OF ADMISSION: 03/16/2020 DATE OF DISCHARGE: 03/20/2020 DISCHARGED BY: Dr. Mendoza REASON FOR ADMISSION: 69 years old male with past medical history of COPD, hypertension, diabetes mellitus, presented from the halfway facility due to generalized weakness. No reported fevers. Patient was slightly hypotensive in the field with blood pressure 97/42 and heart rate of 69. Patietn was observed coughing. Urinalysis revealed pyuria, no evidence of bacteria, +1 protein. Urine toxicology screen was negative. CT of the head demonstrated no acute intracranial pathology. Chronic small vessel ischemic changes and cerebral volume loss noted. Encephalomalacia. Chest x-ray demonstrated left lower lung opacity, representing atelectasis versus pneumonia. In emergency department patient was swabbed for COVID-19. Patient started on empiric antibiotic, pancultured, and admitted for further management. CONSULTANTS: pulmonary Dr. Islas ID specialist Dr. Lewis [facility] COURSE: Patient admitted to telemetry floor to isolation room. Patient started on empiric antibiotics. Blood culture came back negative. SARS-COV 2 by PCR was not detected. Urine culture was negative. Strict aspiration precaution maintained. Patient was treated for probable pneumonia. SNF medication continued. Blood pressure and blood sugar were closely monitored and managed with current management. G-tube feeding resumed.. Renal parameters and electrolytes were closely monitored. BUN from 19 down to 17. Hyperkalemia treated, prior to discharge potassium 4.9. Supportive care provided. Patient clinically stabilized and was ready for transfer back to halfway facility for continuation of care. FINAL DIAGNOSES: Pneumonia Suspected COVID-19 infection -ruled out Hypertension History of CVA/TIA Diabetes mellitus Dysphagia, feeding by G-tube Hypertension Dementia COPD DISCHARGE MEDICATIONS: See Medication Reconciliation list. DISCHARGE INSTRUCTIONS: Patient was discharged to the halfway facility. Follow up with medical doctor at the facility. I have been assigned to dictate discharge summary for this account. I was not involved in the patient's management. Funmi Valentine NP March 21, 2020 16:15
== END 2020-03-20 16:30 | DRG 194 ==
LOC: EDBD 15:13 → EMR 15:30 → 2E 15:43 → EDBEDREQ 17:58
DX: J18.9 Pneumonia, unspecified organism (principal); N39.0 Urinary tract infection, site not specified; Z43.1 Encounter for attention to gastrostomy; E11.9 Type 2 diabetes mellitus without complications; J44.9 Chronic obstructive pulmonary disease, unspecified; F03.90 Unspecified dementia, unspecified severity, without behavioral disturbance, psychotic disturbance, mood disturbance, and anxiety; I10 Essential (primary) hypertension; Z86.73 Personal history of transient ischemic attack (TIA), and cerebral infarction without residual deficits; R13.10 Dysphagia, unspecified
CPT/HCPCS: 36415; 70450; 71045; 80048; 80053; 80307; 81003; 82550; 82962; 83605; 83735; 83880; 84484; 85025; 85610; 85730; 86140; 87040; 87081; 87086; 87635; 93005; 96361; 96365; 96367; 97803; 99291; J1815; J7030